=== PATIENT | female | born 1960 | race Caucasian/White ===

== ENCOUNTER 2021-04-02 11:07 | Inpatient (IN) | payer BC, SELFPAY ==
[2021-04-02] VITALS (17 sets, daily range): BP systolic 117–188; BP diastolic 59–96; PULSE 92–131; RESP 20–32; TEMP 36.6–37; O2SAT 88–99; BMI 58.4; BMI 52.9
--- NOTE | 2021-04-02 11:25 | EKG12_ITS ---
Test Reason : SOB Blood Pressure : / mmHG Vent. Rate : 123 BPM Atrial Rate : 102 BPM P-R Int : 000 ms QRS Dur : 098 ms QT Int : 336 ms P-R-T Axes : 000 030 025 degrees QTc Int : 481 ms Atrial fibrillation Low voltage QRS Abnormal ECG Confirmed by NGA CHRISTENSEN, MARIA FERNANDA ([id number]), supervising editor news reel ENDER SINCLAIR ([id number]) on 04/04/2021 1:23:33 PM Referred By: Confirmed By:MARIA FERNANDA SYLVESTER MD
--- NOTE | 2021-04-02 11:25 | RAD_ITS ---
STUDY: X-RAY CHEST REASON FOR EXAM: Female, 61 years old. sob TECHNIQUE: Single view of the chest was obtained COMPARISON: None. FINDINGS: No consolidative process, pleural effusion or pneumothorax. Cardiac size is prominent. Osseous structures demonstrate no acute abnormalities. Mild dextroconvex curvature of the thoracic spine. Platelike atelectasis in the left lower lobe. IMPRESSION: Mild cardiomegaly and subsegmental atelectasis in the left lower lobe Electronically Signed: Thomas Mccann MD at 13:56 EST Tel , Service support , RAD/Chest 1 View (Portable)
--- NOTE | 2021-04-02 11:31 | EDS_ITS ---
HPI History of Present Illness Chief Complaint: Shortness of Breath Informant: patient Narrative Narrative: 61-year-old female presenting with shortness of breath, body aches, cough, fever. She states her symptoms started approximately 10 days ago. She states her aunt tested positive for Covid. She is not vaccinated for Covid. She lives with her mother who also has similar complaints. She complains of generalized fatigue, weakness, decreased appetite. She complains of dyspnea on exertion. She denies chest pain. Recent Illness/Hospitalization: No PFSH PFSH Medical History (Updated 04/02/21 @ 14:[address] Syeda Pak MD) Diabetes mellitus HLD (hyperlipidemia) HTN (hypertension) Home Medications carvedilol 25 mg PO BID 04/02/21 [History Last Taken Unknown] cholecalciferol (vitamin D3) [Vitamin D3] 25 mcg PO DAILY 04/02/21 [History Last Taken Unknown] glimepiride 4 mg PO BID 04/02/21 [History Last Taken Unknown] losartan-hydrochlorothiazide 1 tab PO DAILY 04/02/21 [History Last Taken Unknown] Allergy/AdvReac Type Severity Reaction Status Date / Time codeine Allergy Shortness Verified 04/02/21 11:12 of breath Surgical History (Updated 04/02/21 @ 11:28 by Hai Sandoval) History of D&C History of wisdom tooth extraction Social History Smoking Status: Former smoker ROS ROS ED Constitutional Constitutional ED: Reports chills and fever(s) Eyes Eyes: Denies change in vision ENT ENT ED: Denies rhinorrhea or sore throat Cardiovascular Cardiovascular: Denies chest pain or palpitations Respiratory/Chest Respiratory/Chest: Reports cough, dyspnea and dyspnea on exertion Gastrointestinal Gastrointestinal: Reports diarrhea; Denies abdominal pain, nausea or vomiting Genitourinary Genitourinary ED: Denies dysuria Musculoskeletal Musculoskeletal: Reports myalgias Integumentary Denies rash Neurologic Neurologic: Denies headache(s) Psychiatric Psychiatric: Denies suicidal thoughts EXAM Physical Exam Const Vital Signs: 04/02/21 11:08 04/02/21 11:30 04/02/21 11:47 Temperature 97.8 F Temperature Source Temporal Pulse Rate 107 H 127 H Respiratory Rate 32 H 29 H Respiratory Effort Short of Breath Labored Respiratory Depth Normal Respiratory Pattern Tachypnea Blood Pressure 188/96 H Blood Pressure Mean 126 Pulse Ox 88 92 Oxygen Delivery Method Room Air Nasal Cannula Nasal Cannula Oxygen Flow Rate (L/min) 3 4 04/02/21 11:50 04/02/21 12:55 04/02/21 12:59 Temperature 97.8 F Temperature Source Temporal Pulse Rate 131 H 99 113 H Respiratory Rate 29 H 20 H 22 H Respiratory Effort Respiratory Depth Respiratory Pattern Tachypnea Blood Pressure 117/73 122/59 H Blood Pressure Mean 87 80 Pulse Ox 90 93 91 Oxygen Delivery Method Nasal Cannula Nasal Cannula Nasal Cannula Oxygen Flow Rate (L/min) 4 4 4 04/02/21 14:23 Temperature 98.3 F Temperature Source Oral Pulse Rate 98 Respiratory Rate 23 H Respiratory Effort Respiratory Depth Respiratory Pattern Blood Pressure 119/77 Blood Pressure Mean 91 Pulse Ox 90 Oxygen Delivery Method Nasal Cannula Oxygen Flow Rate (L/min) 6 Positive well nourished and well developed General Appearance ED: well developed HEENT Reports normocephalic, head/scalp atraumatic and dry mucous membranes Mouth ED: Yes dry mucous membranes Mouth: dry mucous membranes Eyes PERRL and EOMs intact bilaterally Neck supple General: Negative for tenderness Chest Wall inspection of chest normal Resp normal respiratory effort Auscultation: wheezes and diminished lung sounds Cardio Rate: tachycardic Rhythm: abnormal rhythm irregularly irregular GI non-tender and non-distended Palpation: soft; Negative for guarding or rebound tenderness present no CVA tenderness Extremity normal to inspection Neuro oriented x3 Sensorium / Orientation: alert Psych mental status grossly normal MDM MDM MDM Narrative Medical decision making narrative: Pulse ox 87% on room air at rest. EKG shows atrial fibrillation, patient has no known history of atrial fibrillation. She is given Cardizem IV. Labs were reviewed. Covid is positive. Chest x-ray read by myself and radiology shows mild cardiomegaly and subsegmental atelectasis in the left lower lobe. Patient's pulse ox is 93% on 4 L. CTA chest was obtained which shows no evidence of PE. Extensive Covid pneumonia. Discussed with hospitalist for admission.. Lab Data Attestation: I reviewed the patient's lab results. Labs: Laboratory Results - last 24 hr 04/02/21 04/02/21 11:44 11:44 WBC 3.7 L RBC 5.03 Hgb 14.3 Hct 41.6 MCV 82.7 MCH 28.4 MCHC 34.4 RDW Std Deviation 40.8 RDW Coeff of Yoana 13.6 Plt Count 119 L MPV 10.3 Immature Gran % (Auto) 0.500 Neut % (Auto) 73.0 H Lymph % (Auto) 17.9 L [place] % (Auto) 8.1 Eos % (Auto) 0.0 Baso % (Auto) 0.5 Absolute Neuts (auto) 2.7 Absolute Lymphs (auto) 0.66 L Nucleated RBC % 0 Sodium 131 L Potassium 2.9 L Chloride 96 L Carbon Dioxide 24.0 Anion Gap 11 BUN 41 H Creatinine 1.55 H Estim Creat Clear Calc 31.93 Est GFR (MDRD) Af Amer 44 L Est GFR (MDRD) Non-Af 36 L BUN/Creatinine Ratio 26.5 H Glucose 279 H Calcium 8.0 L Total Bilirubin 0.70 AST 72 H ALT 23 Alkaline Phosphatase 84 Troponin I High Sens 95 H Total Protein 7.2 Albumin 2.5 L Globulin 4.7 H Albumin/Globulin Ratio 0.5 L Radiography Chest X-Ray - ED: 1 View, Read by ED Physician and Read by Radiologist Diagnostic Testing: Clinical Impression(s) from Imaging Studies Chest X-Ray 04/02/21 11:25 Chest CTA 04/02/21 14:23 IMPRESSION: 1. No pulmonary embolism. 2. Some limitations to the study, recommend ultrasonography of the lower extremity venous system for further risk stratification. 3. Extensive Covid pneumonia. 4. Severe hepatic steatosis and hepatosplenomegaly. Follow-up with hepatology is advised for possible early/impending cirrhosis. Detection of early/mild cirrhosis is difficult in patients with elevated BMI. Electronically Signed: Vince Sherwood MD at 15:42 EST Tel , Service support , EKG Initial EKG: Attestation: I personally reviewed and interpreted this EKG as follows: Interpretation: No Acute Injury Pattern and Atrial Fibrillation Discharge Plan Triage Chief Complaint: Shortness of Breath ED Provider: Syeda Pak Dx/Rx/DC Orders Clinical Impression: COVID-19, Hypoxia, New onset a-fib Prescriptions: No Action carvedilol 25 mg tablet 25 mg PO BID RF: 0 losartan-hydrochlorothiazide 100-25 mg tablet 1 tab PO DAILY RF: 0 glimepiride 4 mg tablet 4 mg PO BID RF: 0 cholecalciferol (vitamin D3) [Vitamin D3] 25 mcg (1,000 unit) Capsule 25 mcg PO DAILY RF: 0 Primary Care Provider: Evelyn Lazcano Referrals: Evelyn Lazcano MD [Primary Care Provider] - Disposition Disposition: Acute Care Hospital [facility]
--- NOTE | 2021-04-02 11:31 | NURSING ---
NO OLD EKGS
[2021-04-02 12:03] LABS: Absolute Lymphocyte Count 0.66 X10^3/uL (0.83-4.51); Absolute Neutrophil Count 2.7 X10^3/uL (2.0-7.7); Basophil# 0.02 X10^3/uL; Basophil% 0.5 % (0-1); Hematocrit 41.6 % (37-47); Hemoglobin 14.3 g/dL (12.0-15.0); Lymphocyte # 0.66 X10^3/ul (0.83-4.51); Lymphocyte % 17.9 % (19-41); Mean Corp Hgb Conc 34.4 g/dL (32-36); Mean Corpuscular Hgb 28.4 pg (27.0-32.0); Mean Corpuscular Volume 82.7 fL (81-99); Mean Platelet Vol. 10.3 fl (6.2-12.0); Monocyte% 8.1 % (0-10); NRBC Flagged by Analyzer 0 % (0-5); Neutrophil # 2.69 X10^3/uL (2.7-7.7); POSITIVE MORPHOLOGY YES; Platelet Count 119 K/mm3 (150-450); RBC Distribution Width CV 13.6 % (11.6-14.6); RBC Distribution Width SD 40.8 fl (35.1-43.9); Red Blood Count 5.03 M/mm3 (4.2-5.4); White Blood Count 3.7 K/mm3 (4.4-11.0)
[2021-04-02 12:04] LABS: Differential Indicated SCAN CRITERIA MET
[2021-04-02 12:21] LABS: ALB/GLOB Ratio 0.5 RATIO (0.9-2.4); AST(SGOT) 72 U/L (15-37); Alanine Aminotransfer ALT/SGPT 23 U/L (13-56); Albumin, Serum 2.5 g/dL (3.2-5.0); Alkaline Phosphatase 84 U/L (45-117); Anion Gap 11 (5-15); BUN 41 mg/dL (7-18); BUN/Creat Ratio 26.5 RATIO (10-20); Chloride 96 mmol/L (98-107); Creatinine, Serum 1.55 mg/dL (0.55-1.02); EST Glomerular Filtration Rate 36 mL/min (>60); Est Glom Filt Rate - Afr Amer 44 mL/min (>60); Estimated Creatinine Clearance 31.93 ml/min; Globulin 4.7 g/dL (2.2-4.2); Glucose 279 mg/dL (74-106); Potassium 2.9 mmol/L (3.5-5.1); Protein, Total 7.2 g/dL (6.4-8.2); Sodium Level 131 mmol/L (136-145); Troponin-I HS 95 pg/mL (3.0-54.0)
[2021-04-02] MEDS: Albuterol 2.5 MG/3 ML VIAL.NEB. INHALATION (12:54)
[2021-04-02] MEDS: dilTIAZem 25 MG/5 ML Vial 10 MG IV BOLUS (12:56)
--- NOTE | 2021-04-02 14:21 | NURSING ---
DR ALTAGRACIA DELGADO
--- NOTE | 2021-04-02 14:23 | CT_ITS ---
STUDY: CTA CHEST REASON FOR EXAM: Female, 61 years old. Covid new onset atrial fibrillation RADIATION DOSAGE (If Supplied By Facility): CTDIvol = ( 11.47 ) mGy, DLP = ( 532.33 ) mGycm TECHNIQUE: The examination was performed with the intravenous administration of IV 100mL Isovue-370. Post-processing of the angiographic images was performed, with multiplanar reformation and 3D reconstruction. Individualized dose optimization techniques were used for this CT. COMPARISON: None. FINDINGS: Examination is technically limited due to patient''s severely large body habitus and scanning related technique. Segmental and subsegmental branches are not well seen. Diagnostic information is available. There is no acute or chronic pulmonary embolism. Aorta is of normal caliber. There are multifocal extensive lobular ground glass opacities. There is no pulmonary edema or pleural effusions. There are multiple reactive inflammatory benign mediastinal lymph nodes. There is mild coronary artery disease. Liver is moderately to severely enlarged and severely fatty infiltrated. Left hepatic lobe is enlarged. Spleen is moderately enlarged. There is no ascites. Osseous structures are intact. Abdominal structures are unremarkable. CT/CTA Chest W/WO Contrast IMPRESSION: 1. No pulmonary embolism. 2. Some limitations to the study, recommend ultrasonography of the lower extremity venous system for further risk stratification. 3. Extensive Covid pneumonia. 4. Severe hepatic steatosis and hepatosplenomegaly. Follow-up with hepatology is advised for possible early/impending cirrhosis. Detection of early/mild cirrhosis is difficult in patients with elevated BMI. Electronically Signed: Vince Sherwood MD at 15:42 EST Tel , Service support ,
[2021-04-02] MEDS: dexAMETHasone 4 MG Tablet 6 MG PO (14:24)
[2021-04-02] MEDS: Potassium Chloride Oral Tablet 20 MEQ 40 MEQ PO (14:24)
--- NOTE | 2021-04-02 15:54 | NURSING ---
PCU COVID, HYPOXIA, AFIB TERELETSKY
--- NOTE | 2021-04-02 17:59 | HP.PCM.HOS_ITS ---
HPI - General General Date of Admission: 04/02/21 Date of Service: 04/02/21 Chief Complaint: Shortness of breath HPI Narrative HUE JOHNSON, is a 61 F who presents to the emergency room at [facility] with complaints of shortness of breath. Patient also complains of body aches, nonproductive cough, and fever, patient states her symptoms started approximately 10 days ago, she cannot be absolutely sure but she feels that was the time frame. Patient was not vaccinated. Her mother who lives with her also has COVID-19 which was diagnosed today. Work-up in the emergency room included a CTA of her chest which showed no acacia dence of pulmonary emboli, there was noted to be bilateral pneumonia on the CTA however. Patient required supplemental oxygen at 4 L via nasal cannula to maintain her pulse ox. Patient's pulse ox on room air was 87%. Patient was noted to be in atrial fibrillation-this is a new rhythm for the patient, patient was given 1 dose of Cardizem IV which slowed her rate down. Patient's CBC revealed a slightly low white blood cell count at 3.7, chemistry profile was remarkable for a low potassium at 2.9, sodium was 131, chloride was 96, patient's creatinine was 1.55, and BUN was 41. Patient's blood sugar was elevated at 279. We do not have any previous labs in her medical record here. Patient's troponin was elevated at 95, EKG showed A. fib with tachycardia, no injury pattern was noted. Patient does not have any signs or symptoms of TN. Patient will be admitted to PCU for COVID-19 pneumonia with hypoxic respiratory failure, and new onset atrial fibrillation. Patient will be given rate limiting medications, she will be placed on Eliquis for full anticoagulation and she will receive remdesivir and dexamethasone. [facility] Medical History (Updated 04/02/21 @ 14:[address] Syeda Pak MD) Diabetes mellitus HLD (hyperlipidemia) HTN (hypertension) Home Medications carvedilol 25 mg PO BID 04/02/21 [History Last Taken Unknown] cholecalciferol (vitamin D3) [Vitamin D3] 25 mcg PO DAILY 04/02/21 [History Last Taken Unknown] glimepiride 4 mg PO BID 04/02/21 [History Last Taken Unknown] losartan-hydrochlorothiazide 1 tab PO DAILY 04/02/21 [History Last Taken Unknown] Allergy/AdvReac Type Severity Reaction Status Date / Time codeine Allergy Shortness Verified 04/02/21 11:12 of breath Surgical History (Updated 04/02/21 @ 11:28 by Hai Sandoval) History of D&C History of wisdom tooth extraction Social History Smoking Status: Former smoker ROS Constitutional Constitutional: Reports fatigue, fever(s), malaise and weakness; Denies anorexia, change in weight or night sweats Eyes Eyes: Denies blurry vision, change in vision, discharge from eye(s) or eye pain Cardiovascular Cardiovascular: Reports dyspnea on exertion; Denies chest pain, claudication, edema or palpitations Respiratory/Chest Respiratory/Chest: Reports cough, shortness of breath at rest and shortness of breath with exertion; Denies hemoptysis Gastrointestinal Gastrointestinal: Denies abdominal pain, constipation, diarrhea, hematemesis, hematochezia, melena, nausea or vomiting Genitourinary Genitourinary: Denies dysuria, hematuria, urinary frequency, urinary hesitancy, urinary incontinence or urinary urgency Musculoskeletal Musculoskeletal: Denies back pain, joint pain, joint stiffness, joint swelling, myalgias or neck pain Neurologic Neurologic: Denies abnormal gait, abnormal speech, confusion, disequilibrium, dizziness, focal weakness, headache(s), loss of vision, numbness, other visual disturbances, paresthesias, syncope or tingling Psychiatric Psychiatric: Denies anxiety, cognitive impairment, depression, irritability, mood swings or suicidal ideation Endocrine Endocrinology: Denies change in body appearance, cold intolerance, excessive sweating, heat intolerance, polydipsia or polyuria Hematologic/Lymphatic Hematologic/Lymphatic: Denies none, anemia, easy bleeding, easy bruising or lymphadenopathy Allergic/Immunologic Allergic/Immunologic: Denies rhinitis, urticaria, eczemia or asthma Vital Signs Vital Signs Vital Signs: 04/02/21 11:08 04/02/21 11:30 04/02/21 11:47 Temperature 97.8 F Temperature Source Temporal Pulse Rate 107 H 127 H Respiratory Rate 32 H 29 H Respiratory Effort Short of Breath Labored Respiratory Depth Normal Respiratory Pattern Tachypnea Blood Pressure 188/96 H Blood Pressure Mean 126 Blood Pressure Source Blood Pressure Position Blood Pressure Location Pulse Ox 88 92 Oxygen Delivery Method Room Air Nasal Cannula Nasal Cannula Oxygen Flow Rate (L/min) 3 4 04/02/21 11:50 04/02/21 12:55 04/02/21 12:59 Temperature 97.8 F Temperature Source Temporal Pulse Rate 131 H 99 113 H Respiratory Rate 29 H 20 H 22 H Respiratory Effort Respiratory Depth Respiratory Pattern Tachypnea Blood Pressure 117/73 122/59 H Blood Pressure Mean 87 80 Blood Pressure Source Blood Pressure Position Blood Pressure Location Pulse Ox 90 93 91 Oxygen Delivery Method Nasal Cannula Nasal Cannula Nasal Cannula Oxygen Flow Rate (L/min) 4 4 4 04/02/21 14:23 04/02/21 15:50 04/02/21 15:52 Temperature 98.3 F 97.8 F 97.8 F Temperature Source Oral Oral Oral Pulse Rate 98 108 H 102 H Respiratory Rate 23 H 28 H 28 H Respiratory Effort Respiratory Depth Respiratory Pattern Blood Pressure 119/77 122/69 H 122/69 H Blood Pressure Mean 91 86 86 Blood Pressure Source Blood Pressure Position Blood Pressure Location Pulse Ox 90 92 92 Oxygen Delivery Method Nasal Cannula Nasal Cannula Nasal Cannula Oxygen Flow Rate (L/min) 6 4 4 04/02/21 16:33 04/02/21 16:53 04/02/21 17:12 Temperature 98.6 F Temperature Source Oral Pulse Rate 99 Respiratory Rate 20 H 26 H Respiratory Effort Short of Breath Normal Non-Labored Respiratory Depth Shallow Normal Respiratory Pattern Tachypnea Normal Blood Pressure 149/73 H Blood Pressure Mean 98 Blood Pressure Source Monitor Blood Pressure Position Semi-Fowlers Blood Pressure Location Right Forearm Pulse Ox 99 Oxygen Delivery Method Room Air Nasal Cannula Nasal Cannula Oxygen Flow Rate (L/min) 4 4 04/02/21 17:23 Temperature Temperature Source Pulse Rate 103 H Respiratory Rate Respiratory Effort Respiratory Depth Respiratory Pattern Blood Pressure Blood Pressure Mean Blood Pressure Source Blood Pressure Position Blood Pressure Location Pulse Ox Oxygen Delivery Method Oxygen Flow Rate (L/min) Weight Weight: 135.397 kg Body Mass Index (BMI) 52.9 Physical Exam Const alert, oriented x3, no apparent distress and healthy appearing General Appearance: cooperative, well kempt and well developed Orientation / Consciousness: awake, oriented to person, oriented to place and oriented to time HEENT normocephalic, head/scalp atraumatic, hearing grossly normal bilaterally and m oist oral mucous membranes Eyes PERRL, EOMs intact bilaterally and conjunctivae normal Neck nuchal rigidity, supple, no JVD, thyroid normal and no carotid bruits General: trachea midline Resp normal respiratory effort, no retractions, no use of accessory muscles and clear to auscultation bilaterally Auscultation: Negative for rales, rhonchi or wheezes Cardio S1 normal heart sound, S2 normal heart sound, no murmurs, no rub and no gallops Cardio Narrative: Heart rate and rhythm is irregular GI normal to inspection, nondistended, normoactive bowel sounds, soft to palpation, non-tender and non-distended GI Narrative: Patient is morbidly obese Extremity no clubbing, cyanosis or edema Skin no rashes or lesions noted General Skin Exam: no breakdown Neuro oriented x3, CN's II-XII intact bilaterally, no focal motor deficits and no sensory deficits noted Sensorium / Orientation: awake and alert Speech: speech normal Psych thought process normal and affect normal Results Lab / Micro Data Result Diagrams: 04/02/21 11:44 04/02/21 11:44 Labs: Laboratory Results - last 24 hr 04/02/21 11:44: WBC 3.7 L, RBC 5.03, Hgb 14.3, Hct 41.6, MCV 82.7, MCH 28.4, MCHC 34.4, RDW Std Deviation 40.8, RDW Coeff of Yoana 13.6, Plt Count 119 L, MPV 10.3, Immature Gran % (Auto) 0.500, Neut % (Auto) 73.0 H, Lymph % (Auto) 17.9 L, [place] % (Auto) 8.1, Eos % (Auto) 0.0, Baso % (Auto) 0.5, Absolute Neuts (auto) 2.7, Absolute Lymphs (auto) 0.66 L, Nucleated RBC % 0 04/02/21 11:44: Sodium 131 L, Potassium 2.9 L, Chloride 96 L, Carbon Dioxide 24.0, Anion Gap 11, BUN 41 H, Creatinine 1.55 H, Estim Creat Clear Calc 31.93, Est GFR (MDRD) Af Amer 44 L, Est GFR (MDRD) Non-Af 36 L, BUN/Creatinine Ratio 26.5 H, Glucose 279 H, Calcium 8.0 L, Total Bilirubin 0.70, AST 72 H, ALT 23, A lkaline Phosphatase 84, Troponin I High Sens 95 H, Total Protein 7.2, Albumin 2.5 L, Globulin 4.7 H, Albumin/Globulin Ratio 0.5 L Micro: Microbiology 04/02/21 11:44 Nasal Secretion SARS-CoV-2 Antigen (Rapid) - Final SARS-CoV-2 (COVID 19) Radiology Impression Chest X-Ray 04/02/21 11:25 Chest CTA 04/02/21 14:23 IMPRESSION: 1. No pulmonary embolism. 2. Some limitations to the study, recommend ultrasonography of the lower extremity venous system for further risk stratification. 3. Extensive Covid pneumonia. 4. Severe hepatic steatosis and hepatosplenomegaly. Follow-up with hepatology is advised for possible early/impending cirrhosis. Detection of early/mild cirrhosis is difficult in patients with elevated BMI. Electronically Signed: Vince Sherwood MD at 15:42 EST Tel , Service support , Assessment & Plan Assessment/Plan (1) COVID-19: PLAN: 1. COVID-19 pneumonia-patient will be admitted to PCU, she will be placed on dexamethasone and remdesivir, labs will be monitored #2 acute hypoxic respiratory failure-patient is currently on nasal cannula oxygen at 4 L, pulse ox will be monitored #3 new onset atrial fibrillation with RVR-patient will be placed on metoprolol 25 mg twice daily for rate control, she was placed on apixaban 5 mg twice daily for anticoagulation. #4 type 2 diabetes-patient's blood sugars will be monitored, I have chosen to keep the patient on her home medication for her diabetes. #5 morbid obesity #6 elevated creatinine-it is unknown whether the patient has an element of chronic kidney disease, labs will be rechecked tomorrow, I do not feel the patient needs fluid administration at this time. I discussed CODE STATUS with the patient, she wants to be a full code including intubation if necessary. Charges/Coding Visit Charges Inpatient E&M: 57513 Init Hosp L3
[2021-04-02] MEDS: Metoprolol Tartrate 25 MG Tablet PO ×2 (18:01→22:26)
[2021-04-02 22:00] LABS: Bedside Glucose 412 mg/dL (70-110)
[2021-04-02] MEDS: APIXABAN 5 MG TABLET PO (22:25)
[2021-04-02] MEDS: Carvedilol 25 MG Tablet PO (22:26)
[2021-04-02] MEDS: Insulin Lispro 100 UNIT/ML INSULN.PEN SC (22:35)
[2021-04-02 23:43] LABS: BNP,B-Type NATRIURETIC PEPTIDE 59.7 pg/mL (0-100)
--- NOTE | 2021-04-02 23:45 | PCS.PANDOC ---
PANDEMIC DOCUMENTATION INITIATED: Date: 12/27/2020 Time: 190
[2021-04-03] VITALS (25 sets, daily range): BP systolic 85–131; BP diastolic 58–75; PULSE 74–111; RESP 12–25; TEMP 36.2–37.5; O2SAT 89–94
[2021-04-03 00:02] LABS: Ferritin 3731 ng/mL (8-252); LDH 727 U/L (84-246); Magnesium 2.1 mg/dL (1.6-2.6)
[2021-04-03 04:52] LABS: Absolute Lymphocyte Count 0.42 X10^3/uL (0.83-4.51); Absolute Neutrophil Count 1.5 X10^3/uL (2.0-7.7); Basophil# 0.01 X10^3/uL; Basophil% 0.5 % (0-1); Hematocrit 40.4 % (37-47); Hemoglobin 13.4 g/dL (12.0-15.0); Lymphocyte # 0.42 X10^3/ul (0.83-4.51); Lymphocyte % 19.5 % (19-41); Mean Corp Hgb Conc 33.2 g/dL (32-36); Mean Corpuscular Hgb 28.2 pg (27.0-32.0); Mean Corpuscular Volume 84.9 fL (81-99); Monocyte# 0.24 X10^3/uL; Monocyte% 11.2 % (0-10); NRBC Flagged by Analyzer 0 % (0-5); Neutrophil # 1.47 X10^3/uL (2.7-7.7); Neutrophil % 68.3 % (47-70); POSITIVE DIFFERENTIAL YES; POSITIVE MORPHOLOGY YES; Platelet Count 103 K/mm3 (150-450); RBC Distribution Width CV 13.5 % (11.6-14.6); RBC Distribution Width SD 42.3 fl (35.1-43.9); Red Blood Count 4.76 M/mm3 (4.2-5.4); White Blood Count 2.2 K/mm3 (4.4-11.0)
[2021-04-03 05:06] LABS: Differential Indicated SCAN CRITERIA MET
[2021-04-03 05:07] LABS: D-Dimer Quantitative (DVT/PE) 1.65 FEU/ug/m (0.27-0.49)
[2021-04-03 05:20] LABS: ALB/GLOB Ratio 0.5 RATIO (0.9-2.4); AST(SGOT) 66 U/L (15-37); Alanine Aminotransfer ALT/SGPT 29 U/L (13-56); Albumin, Serum 2.2 g/dL (3.2-5.0); Alkaline Phosphatase 82 U/L (45-117); Anion Gap 10 (5-15); BUN 44 mg/dL (7-18); BUN/Creat Ratio 29.9 RATIO (10-20); Calcium,Total 7.9 mg/dL (8.5-10.1); Chloride 96 mmol/L (98-107); Creatinine, Serum 1.47 mg/dL (0.55-1.02); EST Glomerular Filtration Rate 39 mL/min (>60); Est Glom Filt Rate - Afr Amer 47 mL/min (>60); Estimated Creatinine Clearance 33.67 ml/min; Globulin 4.6 g/dL (2.2-4.2); Glucose 425 mg/dL (74-106); Potassium 3.5 mmol/L (3.5-5.1); Protein, Total 6.8 g/dL (6.4-8.2); Sodium Level 131 mmol/L (136-145)
[2021-04-03 05:39] LABS: Procalcitonin 0.32 ng/mL (0.00-0.09)
[2021-04-03] MEDS: Insulin Lispro 100 UNIT/ML INSULN.PEN SC ×4 (06:53→21:34)
[2021-04-03 07:06] LABS: Bedside Glucose 392 mg/dL (70-110)
[2021-04-03 07:10] LABS: Hemoglobin A1c 9.2 % (3.8-5.6)
[2021-04-03] MEDS: Ipratropium/Albuterol Sulfate 3 ML AMPUL.NEB INHALATION ×3 (07:15→19:20)
[2021-04-03] MEDS: Metoprolol Tartrate 25 MG Tablet PO ×2 (10:35→21:36)
[2021-04-03] MEDS: Carvedilol 25 MG Tablet PO ×2 (10:36→21:36)
[2021-04-03] MEDS: Cholecalciferol (VIT D3) 25 MCG TABLET (1,000 UNITS) PO (10:36)
[2021-04-03] MEDS: APIXABAN 5 MG TABLET PO ×2 (10:36→21:37)
[2021-04-03] MEDS: Losartan Potassium 100 MG Tablet PO (10:36)
[2021-04-03] MEDS: dexAMETHasone 4 MG/ML Vial 6 MG IV (10:36)
[2021-04-03] MEDS: hydroCHLOROthiazide 25 MG Tablet PO (10:36)
[2021-04-03] MEDS: Glimepiride 4 MG Tablet PO (10:37)
[2021-04-03 12:30] LABS: Bedside Glucose 480 mg/dL (70-110)
[2021-04-03] MEDS: Insulin Lispro 100 UNIT/ML INSULN.PEN 10 UNIT SC ×2 (13:44→17:06)
[2021-04-03] MEDS: 0.9% Saline Lock 10 ML Syringe IV (17:05)
[2021-04-03] MEDS: Furosemide 40 MG/4 ML Vial IV (17:05)
[2021-04-03 17:15] LABS: Bedside Glucose 436 mg/dL (70-110)
--- NOTE | 2021-04-03 19:27 | PCM.PN.HOSP ---
Subjective Subjective Patient was seen and examined today, currently she is on BiPAP at 75% O2, she appears comfortable at rest. I elected to place the patient on Lasix today. I also contacted infectious diseases and the patient was placed on baricitinib. Objective Data Objective Data Vital Signs: Vital Signs Temp Pulse Resp BP Pulse Ox 97.3 F L 86 20 H 94/59 L 93 04/03/21 16:00 04/03/21 18:00 04/03/21 16:00 04/03/21 16:00 04/03/21 16:00 Oxygen Flow Rate (L/min) 60 Oxygen Delivery Method Bi-pap Weight: 135.4 kg Body Mass Index (BMI) 52.9 Intake & Output: Intake and Output for Last 24 Hours 04/01/21 04/02/21 04/03/21 23:59 23:59 23:59 Intake Total 770 / 770 790 / 790 Output Total 200 / 200 Balance 770 / 770 590 / 590 Lab / Micro Data Result Diagrams: 04/03/21 04:25 04/03/21 04:25 Labs: Laboratory Results - last 24 hr 04/02/21 11:44: Magnesium 2.1, Ferritin 3731 H, Lactate Dehydrogenase 727 H, C-React Prot Ext Range 147.00 H 04/02/21 11:44: B-Natriuretic Peptide 59.7 04/02/21 21:53: POC Glucose 412 H 04/03/21 04:25: WBC 2.2 L, RBC 4.76, Hgb 13.4, Hct 40.4, MCV 84.9, MCH 28.2, MCHC 33.2, RDW Std Deviation 42.3, RDW Coeff of Yoana 13.5, Plt Count 103 L, MPV 10.0, Immature Gran % (Auto) 0.500, Neut % (Auto) 68.3, Lymph % (Auto) 19.5, [place] % (Auto) 11.2 H, Eos % (Auto) 0.0, Baso % (Auto) 0.5, Absolute Neuts (auto) 1.5 L, Absolute Lymphs (auto) 0.42 L, Nucleated RBC % 0, Diff Path Review September04/03/21 04:25: Sodium 131 L, Potassium 3.5, Chloride 96 L, Carbon Dioxide 25.0, Anion Gap 10, BUN 44 H, Creatinine 1.47 H, Estim Creat Clear Calc 33.67, Est GFR (MDRD) Af Amer 47 L, Est GFR (MDRD) Non-Af 39 L, BUN/Creatinine Ratio 29.9 H, Glucose 425 H, Calcium 7.9 L, Total Bilirubin 0.50, AST 66 H, ALT 29, Alkaline Phosphatase 82, Total Protein 6.8, Albumin 2.2 L, Globulin 4.6 H, Albumin/Globulin Ratio 0.5 L 04/03/21 04:25: D-Dimer Quant (PE/DVT) 1.65 H* 04/03/21 04:25: Procalcitonin 0.32 H 04/03/21 04:25: Hemoglobin A1c 9.2 H 04/03/21 06:44: POC Glucose 392 H 04/03/21 12:18: POC Glucose 480 H* 04/03/21 17:04: POC Glucose 436 H Micro: Microbiology 04/02/21 23:45 Mucosa - Nasopharyngeal Respiratory Panel (PCR) - Final 04/02/21 11:44 Nasal Secretion SARS-CoV-2 Antigen (Rapid) - Final SARS-CoV-2 (COVID 19) Physical Exam Const alert, oriented x3, no apparent distress and healthy appearing General Appearance: cooperative, well kempt and well developed Orientation / Consciousness: awake, oriented to person, oriented to place and oriented to time HEENT normocephalic, head/scalp atraumatic and moist oral mucous membranes Head and Scalp: normocephalic Eyes PERRL, EOMs intact bilaterally and conjunctivae normal Neck nuchal rigidity, supple, no JVD, thyroid normal and no carotid bruits General: trachea midline Resp normal respiratory effort, no retractions, no use of accessory muscles and clear to auscultation bilaterally Auscultation: Negative for rales, rhonchi or wheezes Cardio no murmurs, no rub and no gallops Cardio Narrative: Heart rate and rhythm is irregular GI normal to inspection, nondistended, normoactive bowel sounds, soft to palpation, non-tender and non-distended GI Narrative: Patient is morbidly obese Extremity no clubbing, cyanosis or edema Skin no rashes or lesions noted General Skin Exam: no breakdown Neuro oriented x3, CN's II-XII intact bilaterally, no focal motor deficits and no sensory deficits noted Sensorium / Orientation: awake and alert Speech: speech normal Psych thought process normal and affect normal Assessment & Plan Assessment/Plan (1) COVID-19: PLAN: 1. COVID-19 pneumonia-patient was placed on baricitinib today, she will be seen by infectious diseases tomorrow. #2 acute hypoxic respiratory failure-I will consult pulmonary medicine due to her high oxygen requirement, patient is currently on BiPAP #3 new onset atrial fibrillation with RVR-this appears to be under control with rate limiting medications, I have chosen not to obtain an echocardiogram at this time due to the patient's tenuous respiratory status. #4 type 2 diabetes-patient's blood sugars will be monitored,I will stop the patient's Amaryl, I have placed the patient on long-acting insulin, she will continue to receive sliding scale insulin. #5 morbid obesity #6 elevated creatinine-it is unknown whether the patient has an element of chronic kidney disease, labs will be rechecked tomorrow, I do not feel the patient needs fluid administration at this time. I discussed CODE STATUS with the patient yesterday, she wants to be a full code including intubation if necessary. Charges/Coding Visit Charges Inpatient E&M: 90277 Subs Hosp L2
--- NOTE | 2021-04-03 19:43 | PCM.HOSP.N ---
Hospitalist Note Patient reporting desire to transition CODE status. She now notes interest in transitioning to DNR-CCA, no intubation status therefore CODE status order for her current request placed. She has continued to requiring increasing amounts FiO2 on BIPAP, BP low but on lasix concurrently.
--- NOTE | 2021-04-03 21:21 | CPS ---
Pt. put on AirVo during her aersol breathing tx. Pt. needed put back on BiPAP after tx. ended, due to hypoxia and AirVo being unable to keep oxygen saturations in appropriate range
[2021-04-03 21:50] LABS: Bedside Glucose 271 mg/dL (70-110)
[2021-04-04] VITALS (28 sets, daily range): BP systolic 85–124; BP diastolic 56–81; PULSE 73–98; RESP 12–30; TEMP 35.8–37; O2SAT 88–96
[2021-04-04] MEDS: 0.9% Saline Lock 10 ML Syringe IV ×2 (04:00→09:31)
--- NOTE | 2021-04-04 04:10 | NURSING ---
bladderscanned for 597 ml. Pt has not voided since sunday afternoon. Pt denies need to void.
[2021-04-04 07:17] LABS: Absolute Lymphocyte Count 0.71 X10^3/uL (0.83-4.51); Absolute Neutrophil Count 2.4 X10^3/uL (2.0-7.7); Basophil# 0.02 X10^3/uL; Basophil% 0.6 % (0-1); Hematocrit 40.2 % (37-47); Hemoglobin 13.4 g/dL (12.0-15.0); Lymphocyte # 0.71 X10^3/ul (0.83-4.51); Lymphocyte % 21.3 % (19-41); Mean Corp Hgb Conc 33.3 g/dL (32-36); Mean Corpuscular Hgb 28.3 pg (27.0-32.0); Mean Corpuscular Volume 84.8 fL (81-99); Mean Platelet Vol. 10.3 fl (6.2-12.0); Monocyte# 0.23 X10^3/uL; Monocyte% 6.9 % (0-10); NRBC Flagged by Analyzer 0 % (0-5); Neutrophil # 2.35 X10^3/uL (2.7-7.7); Neutrophil % 70.6 % (47-70); POSITIVE MORPHOLOGY YES; Platelet Count 124 K/mm3 (150-450); RBC Distribution Width CV 13.5 % (11.6-14.6); RBC Distribution Width SD 42.1 fl (35.1-43.9); Red Blood Count 4.74 M/mm3 (4.2-5.4); White Blood Count 3.3 K/mm3 (4.4-11.0)
[2021-04-04 07:36] LABS: Differential Indicated SCAN CRITERIA MET
[2021-04-04] MEDS: Ipratropium/Albuterol Sulfate 3 ML AMPUL.NEB INHALATION ×3 (07:38→19:32)
[2021-04-04 07:50] LABS: ALB/GLOB Ratio 0.4 RATIO (0.9-2.4); AST(SGOT) 43 U/L (15-37); Alanine Aminotransfer ALT/SGPT 21 U/L (13-56); Albumin, Serum 1.9 g/dL (3.2-5.0); Alkaline Phosphatase 75 U/L (45-117); Anion Gap 11 (5-15); BUN 64 mg/dL (7-18); BUN/Creat Ratio 44.4 RATIO (10-20); Calcium,Total 8.5 mg/dL (8.5-10.1); Chloride 103 mmol/L (98-107); Creatinine, Serum 1.44 mg/dL (0.55-1.02); EST Glomerular Filtration Rate 40 mL/min (>60); Est Glom Filt Rate - Afr Amer 48 mL/min (>60); Estimated Creatinine Clearance 34.37 ml/min; Globulin 4.8 g/dL (2.2-4.2); Glucose 190 mg/dL (74-106); Potassium 3.2 mmol/L (3.5-5.1); Protein, Total 6.7 g/dL (6.4-8.2); Sodium Level 135 mmol/L (136-145)
[2021-04-04 07:55] LABS: Reactive Lymphocyte RARE
--- NOTE | 2021-04-04 08:33 | EX.PCM.CONCC ---
Assessment & Plan Assessment/Plan (1) Acute respiratory failure with hypoxia: (2) COVID-19: (3) New onset a-fib: PLAN: RECOMMENDATIONS: 1. Continue baricitinib, Decadron and Remdesivir 2. Agree with bronchodilators 3. Consider empiric antibiotics 4. Aggressive potassium repletion and blood sugar control 5. Continue Lasix for now 6. Attempt Airvo during the day. Continue BiPAP with sleep IMPRESSIONS: 1. Acute hypoxic respiratory failure secondary to ARDS secondary to COVID-19 Did confirm patient is a DNR Comfort Care arrest without intubation. Patient is wanting guarantees about intubation that cannot be given. Patient is receiving aggressive therapy with baricitinib, Decadron and Remdesivir. Would consider empiric antibiotics given patient's marginal oxygenation status. Patient is already receiving diuretics, but will aggressively supplement potassium. Continue with aggressive blood sugar control, but this will be exacerbated by Decadron. Patient may have an element of obstructive sleep apnea leading to worsening oxygenation with sleep, so may attempt Airvo during the day. 2. Hypertension/morbid obesity/unvaccinated status/no intubation Complicates care, management, recovery and prognosis. Okay to continue with baseline medications at this time. High clinical suspicion for an element of obstructive sleep apnea, so patient may be able to go back to Airvo when not sleeping. Recommend continuing BiPAP for now. Did discuss with the patient about the role of mechanical ventilation moving forward. HPI Consult Data Date of Consult: 04/04/21 HPI Narrative HPI Narrative: HUE JOHNSON is a 61 F, with past medical history listed below, who presents to [facility] on 04/02/2021 secondary to approximately 10 days of progressive symptomatology including dyspnea, body aches, fever and cough. Patient has not received vaccinations for COVID-19. Patient does live with her mother that has similar complaints. In the ER, patient was afebrile, but tachycardic as high as 131 bpm. Patient was noted to be 88% on room air, but did respond to 6 L nasal cannula. Laboratory data showed a white blood cell count of 3.7, hemoglobin of 14.3 and platelets of 119. Potassium was low at 2.9 and creatinine was elevated at 1.55 with a BUN of 41. Glucose was elevated, but liver enzymes were relatively benign. CTA of the chest showed no PE, but groundglass opacities bilaterally. Patient also had severe steatosis with hepatosplenomegaly. EKG showed A. fib. Over the course of patient's hospitalization, oxygenation has worsened. Patient is currently on BiPAP at 100% FiO2 to maintain saturations. Patient was seen by the hospitalist overnight and changed her CODE STATUS to DNR Comfort Care arrest without intubation. Patient states that she wants a guarantee that it will make a difference before agreeing to any invasive procedures. Patient denies any need for previous supplemental oxygen. Patient does not carry diagnosis of asthma or COPD, but does report a 14-berl-wijv smoking history. Patient is obese and admits to snoring, but is never been diagnosed with obstructive sleep apnea. Patient is not reporting any nausea or vomiting and feels the BiPAP does help with her breathlessness. Patient does carry diagnosis of hypertension and type 2 diabetes. Review of systems otherwise negative from a constitutional, HEENT, respiratory, cardiovascular, GI, genitourinary, musculoskeletal, skin, neurologic, psychiatric and hematologic system unless stated above. [facility] Medical History Diabetes mellitus HLD (hyperlipidemia) HTN (hypertension) Home Medications carvedilol 25 mg PO BID 04/02/21 [History Last Taken Unknown] cholecalciferol (vitamin D3) [Vitamin D3] 25 mcg PO DAILY 04/02/21 [History Last Taken Unknown] glimepiride 4 mg PO BID 04/02/21 [History Last Taken Unknown] losartan-hydrochlorothiazide 1 tab PO DAILY 04/02/21 [History Last Taken Unknown] Allergy/AdvReac Type Severity Reaction Status Date / Time codeine Allergy Shortness Verified 04/02/21 11:12 of breath Surgical History History of D&C History of wisdom tooth extraction Social History Smoking Status: Former smoker ROS ROS Narrative See HPI Physical Exam Const alert and oriented x3 General Appearance: cooperative, well kempt, well developed and on BiPAP Orientation / Consciousness: awake, oriented to person, oriented to place and oriented to time Nutritional Appearance: morbidly obese HEENT normocephalic, head/scalp atraumatic and moist oral mucous membranes Head and Scalp: normocephalic Eyes PERRL, EOMs intact bilaterally and conjunctivae normal Neck nuchal rigidity, supple, no JVD, thyroid normal and no carotid bruits General: trachea midline Resp no retractions Effort and Inspection: tachypneic Auscultation: diminished lung sounds; Negative for rales, rhonchi or wheezes Cardio no murmurs, no rub and no gallops Cardio Narrative: Heart rate is controlled and rhythm is irregular GI normal to inspection, nondistended, normoactive bowel sounds, soft to palpation, non-tender and non-distended GI Narrative: Patient is morbidly obese Extremity no clubbing, cyanosis or edema Skin no rashes or lesions noted General Skin Exam: no breakdown Neuro oriented x3, CN's II-XII intact bilaterally, no focal motor deficits and no sensory deficits noted Sensorium / Orientation: awake and alert Speech: speech normal Psych thought process normal and affect normal Lab / Micro Data Result Diagrams: 04/04/21 06:32 04/04/21 06:32 Labs: Laboratory Results - last 24 hr 04/03/21 12:18: POC Glucose 480 H* 04/03/21 17:04: POC Glucose 436 H 04/03/21 21:31: POC Glucose 271 H 04/04/21 06:32: WBC 3.3 L, RBC 4.74, Hgb 13.4, Hct 40.2, MCV 84.8, MCH 28.3, MCHC 33.3, RDW Std Deviation 42.1, RDW Coeff of Yoana 13.5, Plt Count 124 L, MPV 10.3, Immature Gran % (Auto) 0.600, Neut % (Auto) 70.6 H, Lymph % (Auto) 21.3, [place] % (Auto) 6.9, Eos % (Auto) 0.0, Baso % (Auto) 0.6, Absolute Neuts (auto) 2.4, Absolute Lymphs (auto) 0.71 L, Nucleated RBC % 0, Reactive Lymphocytes RARE 04/04/21 06:32: Sodium 135 L, Potassium 3.2 L, Chloride 103, Carbon Dioxide 21.0, Anion Gap 11, BUN 64 H, Creatinine 1.44 H, Estim Creat Clear Calc 34.37, Est GFR (MDRD) Af Amer 48 L, Est GFR (MDRD) Non-Af 40 L, BUN/Creatinine Ratio 44.4 H, Glucose 190 H, Calcium 8.5, Total Bilirubin 0.40, AST 43 H, ALT 21, Alkaline Phosphatase 75, C-React Prot Ext Range 122.00 H, Total Protein 6.7, Albumin 1.9 L, Globulin 4.8 H, Albumin/Globulin Ratio 0.4 L Micro: Microbiology 04/04/21 04:30 Urine Catheter - Whipple Legionella Antigen - Final 04/04/21 04:30 Urine Catheter - Whipple Streptococcus pneumoniae Antigen (M - Final 04/02/21 23:45 Mucosa - Nasopharyngeal Respiratory Panel (PCR) - Final Charges/Coding Visit Charges Inpatient E&M: 19261 Init Hosp L3
[2021-04-04] MEDS: Potassium Chloride 10mEq/100mL 10 MEQ/100 ML IV.SOLN. 100 MEQ IV BOLUS ×4 (09:49→15:11)
[2021-04-04] MEDS: dexAMETHasone 4 MG/ML Vial 6 MG IV (09:57)
[2021-04-04] MEDS: Carvedilol 25 MG Tablet PO ×2 (10:01→21:17)
[2021-04-04] MEDS: Losartan Potassium 100 MG Tablet PO (10:01)
[2021-04-04] MEDS: APIXABAN 5 MG TABLET PO ×2 (10:01→21:16)
[2021-04-04] MEDS: Cholecalciferol (VIT D3) 25 MCG TABLET (1,000 UNITS) PO (10:01)
[2021-04-04] MEDS: Furosemide 40 MG Tablet PO ×2 (10:01→17:39)
[2021-04-04] MEDS: guaiFENesin 1,200 MG Tablet 1200 MG PO ×2 (10:01→21:16)
[2021-04-04 10:21] LABS: Bedside Glucose 184 mg/dL (70-110)
--- NOTE | 2021-04-04 11:45 | CASEMGMT ---
RN CM called daughterSeema, for initial transition planning/care coordination assessment, as patient is on continuous Bipap at this time. PAULINO CM introduced self and role at [facility]. Daughter willing to participate in assessment and is able to answer all questions appropriately. Care providers, pharmacy, and demographics verified. Daughter wishes for patient to discharge home, will monitor for need for HHC pending progress with therapy. Daughter states she has no further needs or concerns at this time. CM to follow for discharge planning needs that may arise. PCP: [facility] Specialists: none Preferred Pharmacy: [facility]; [facility] retail at discharge. Insurance: [employer] Prescription Benefit: yes Living Will/HPOA: none LNOK: daughter, mother Living Arrangements: Patient lives with mother, whom she provides care for which patient's daughter is currently providing care. Patient lives in a 2 story home. Patient is normally independent and able to ambulate stairs. Transportation: self/daughter DME/HHC: Daughter denies previous DME or HHC. No preferences for DME. Disposition Plan: Patient to discharge home with family support and follow-up plans in place. Will monitor for HHC and home oxygen pending progress with care. Natalia FRANK, RN, CM
[2021-04-04] MEDS: Metoprolol Tartrate 25 MG Tablet PO ×2 (12:06→21:16)
[2021-04-04 12:15] LABS: Bedside Glucose 158 mg/dL (70-110)
--- NOTE | 2021-04-04 15:40 | PCM.CONS.GEN ---
Assessment & Plan Assessment/Plan (1) COVID-19: PLAN: Sx started around 03/23. Isolate until 04/12. Unvaccinated. On dex, remdesivir, baricitinib, and zosyn. Recommended vaccine once out of isolation and out of the hospital. CT neg for PE. Procal 0.3. Overall low suspicion for bacterial infection at this point. Will follow, thank you (2) Acute respiratory failure with hypoxia: HPI Consult Data Date of Consult: 04/04/21 HPI Narrative HPI Narrative: HUE JOHNSON, is a 61 F who presented 04/02 with about 10 days fever, chills, fatigue, aches, SOB, cough, diarrhea. Lives with her mother who is recovering. Unvaccinated. Came to ED, admitted on dex, remdesivir. Put on airvo, started baricitinib. Feeling a little better. Full ROS performed and neg except as noted above. [facility] Medical History Diabetes mellitus HLD (hyperlipidemia) HTN (hypertension) Home Medications carvedilol 25 mg PO BID 04/02/21 [History Last Taken Unknown] cholecalciferol (vitamin D3) [Vitamin D3] 25 mcg PO DAILY 04/02/21 [History Last Taken Unknown] glimepiride 4 mg PO BID 04/02/21 [History Last Taken Unknown] losartan-hydrochlorothiazide 1 tab PO DAILY 04/02/21 [History Last Taken Unknown] Allergy/AdvReac Type Severity Reaction Status Date / Time codeine Allergy Shortness Verified 04/02/21 11:12 of breath Surgical History History of D&C History of wisdom tooth extraction Social History Smoking Status: Former smoker Physical Exam Const alert and oriented x3 General Appearance: cooperative Exam Limitations: no limitations HEENT normocephalic and head/scalp atraumatic Eyes PERRL and EOMs intact bilaterally Neck supple and No nodes Resp Auscultation: diminished lung sounds Cardio regular rate and regular rhythm GI normal to inspection, nondistended, normoactive bowel sounds Extremity no clubbing, cyanosis or edema Skin no rashes or lesions noted Neuro CN's II-XII intact bilaterally Lab / Micro Data Result Diagrams: 04/04/21 06:32 04/04/21 06:32 Labs: Laboratory Results - last 24 hr 04/03/21 17:04: POC Glucose 436 H 04/03/21 21:31: POC Glucose 271 H 04/04/21 06:32: WBC 3.3 L, RBC 4.74, Hgb 13.4, Hct 40.2, MCV 84.8, MCH 28.3, MCHC 33.3, RDW Std Deviation 42.1, RDW Coeff of Yoana 13.5, Plt Count 124 L, MPV 10.3, Immature Gran % (Auto) 0.600, Neut % (Auto) 70.6 H, Lymph % (Auto) 21.3, [place] % (Auto) 6.9, Eos % (Auto) 0.0, Baso % (Auto) 0.6, Absolute Neuts (auto) 2.4, Absolute Lymphs (auto) 0.71 L, Nucleated RBC % 0, Reactive Lymphocytes RARE 04/04/21 06:32: Sodium 135 L, Potassium 3.2 L, Chloride 103, Carbon Dioxide 21.0, Anion Gap 11, BUN 64 H, Creatinine 1.44 H, Estim Creat Clear Calc 34.37, Est GFR (MDRD) Af Amer 48 L, Est GFR (MDRD) Non-Af 40 L, BUN/Creatinine Ratio 44.4 H, Glucose 190 H, Calcium 8.5, Total Bilirubin 0.40, AST 43 H, ALT 21, Alkaline Phosphatase 75, C-React Prot Ext Range 122.00 H, Total Protein 6.7, Albumin 1.9 L, Globulin 4.8 H, Albumin/Globulin Ratio 0.4 L 04/04/21 09:29: POC Glucose 184 H 04/04/21 12:02: POC Glucose 158 H Micro: Microbiology 04/04/21 04:30 Urine Catheter - Whipple Legionella Antigen - Final 04/04/21 04:30 Urine Catheter - Whipple Streptococcus pneumoniae Antigen (M - Final
--- NOTE | 2021-04-04 16:41 | PN.HOSP_ITS ---
Subjective Subjective Patient remains on BiPAP. She changed her CODE STATUS to DNR CCA without intubation overnight. She denies any acute changes. Objective Data Objective Data Vital Signs: Vital Signs Temp Pulse Resp BP Pulse Ox 98.0 F 89 22 H 124/81 H 90 04/04/21 16:10 04/04/21 16:10 04/04/21 16:10 04/04/21 16:10 04/04/21 16:10 Oxygen Flow Rate (L/min) 60 Oxygen Delivery Method Bi-pap Weight: 135.4 kg Body Mass Index (BMI) 52.9 Intake & Output: Intake and Output for Last 24 Hours 04/02/21 04/03/21 04/04/21 23:59 23:59 23:59 Intake Total 770 / 770 790 / 990 1170 / 1170 Output Total 200 / 200 1350 / 1350 Balance 770 / 770 590 / 790 -180 / -180 Lab / Micro Data Result Diagrams: 04/04/21 06:32 04/04/21 06:32 Labs: Laboratory Results - last 24 hr 04/03/21 17:04: POC Glucose 436 H 04/03/21 21:31: POC Glucose 271 H 04/04/21 06:32: WBC 3.3 L, RBC 4.74, Hgb 13.4, Hct 40.2, MCV 84.8, MCH 28.3, MCHC 33.3, RDW Std Deviation 42.1, RDW Coeff of Yoana 13.5, Plt Count 124 L, MPV 10.3, Immature Gran % (Auto) 0.600, Neut % (Auto) 70.6 H, Lymph % (Auto) 21.3, [place] % (Auto) 6.9, Eos % (Auto) 0.0, Baso % (Auto) 0.6, Absolute Neuts (auto) 2.4, Absolute Lymphs (auto) 0.71 L, Nucleated RBC % 0, Reactive Lymphocytes RARE 04/04/21 06:32: Sodium 135 L, Potassium 3.2 L, Chloride 103, Carbon Dioxide 21.0, Anion Gap 11, BUN 64 H, Creatinine 1.44 H, Estim Creat Clear Calc 34.37, Est GFR (MDRD) Af Amer 48 L, Est GFR (MDRD) Non-Af 40 L, BUN/Creatinine Ratio 44.4 H, Glucose 190 H, Calcium 8.5, Total Bilirubin 0.40, AST 43 H, ALT 21, Alkaline Phosphatase 75, C-React Prot Ext Range 122.00 H, Total Protein 6.7, Albumin 1.9 L, Globulin 4.8 H, Albumin/Globulin Ratio 0.4 L 04/04/21 09:29: POC Glucose 184 H 04/04/21 12:02: POC Glucose 158 H Micro: Microbiology 04/04/21 04:30 Urine Catheter - Whipple Legionella Antigen - Final 04/04/21 04:30 Urine Catheter - Whipple Streptococcus pneumoniae Antigen (M - Final 04/02/21 23:45 Mucosa - Nasopharyngeal Respiratory Panel (PCR) - Final 04/02/21 11:44 Nasal Secretion SARS-CoV-2 Antigen (Rapid) - Final SARS-CoV-2 (COVID 19) Physical Exam Const alert, oriented x3 and no apparent distress Constitutional Narrative: Morbidly obese white female lying in bed on BiPAP, c ognition is good and patient can interact well with nodding head and mouthing words through her BiPAP, nontoxic-appearing Exam Limitations: no limitations Nutritional Appearance: morbidly obese HEENT head/scalp atraumatic and oropharynx normal HEENT Narrative: Mallampati 3-4, no thrush Head and Scalp: normocephalic Mouth: dry mucous membranes Resp normal respiratory effort, no retractions, no use of accessory muscles and clear to auscultation bilaterally Resp Narrative: Secondary to body habitus but overall diminished without any adventitious sounds, currently no signs of extremis Auscultation: Negative for crackles, rales, rhonchi or wheezes Cardio regular rate, regular rhythm, S1 normal heart sound, S2 normal heart sound, no murmurs, no rub, no gallops, no clicks and no JVD GI normal to inspection, nondistended, normoactive bowel sounds, soft to palpation, non-tender and non-distended Extremity no clubbing, cyanosis or edema Peripheral Pulses: Yes pulses 2+ throughout Neuro oriented x3, CN's II-XII intact bilaterally, moves all extremities and no focal motor deficits Sensorium / Orientation: awake and alert Assessment & Plan Assessment/Plan (1) Acute respiratory failure with hypoxia: (2) COVID-19: (3) New onset a-fib: (4) Leukopenia: (5) Thrombocytopenia: (6) Hypokalemia: (7) Stage 3b chronic kidney disease: PLAN: Acute hypoxic respiratory failure secondary to COVID-19 pneumonia -Patient is currently on BiPAP with an FiO2 of 85% and an SPO2 of 90 to 93% -Patient changed her CODE STATUS to DNR CCA without intubation overnight -Continue baricitinib dose 2 of 14 -Continue Decadron dose 2 of 10 -Continue remdesivir dose 2 of 5 -Lasix 40 mg p.o. twice daily has been ordered and patient also got an extra IV push dose overnight -Repeat a.m. BMP to monitor renal function -Check sputum culture -Encourage prone lying as able -Encourage incentive spirometer and Acapella as able -Duo nebs -Patient is on Eliquis 5 mg p.o. twice daily -Will need isolation until 04/12/2021 as symptoms started approximately 03/23/2021 -Recommend vaccine once out of isolation -Appreciate pulmonary and infectious disease input New onset A. fib -Patient is currently in normal sinus rhythm -We will obtain echocardiogram once patient is out of isolation as there is no change that will be made at this time given acute findings on echo -Patient is on Eliquis 5 mg p.o. twice daily Leukopenia -Mild -Likely related to COVID-19 infection -Continue to monitor counts Thrombocytopenia -Mild -Current platelet count is 128 -CBC in a.m. Hypokalemia -Discontinue scheduled potassium replacement -60 mEq p.o. x1 dose -Repeat BMP in a.m. -If still low will obtain mag level Suspected CKD stage IIIb -We have no available serum creatinine measurements prior to admission -Serum creatinine is relatively stable at 1.444 on admission was 1.55 -Continue to monitor -I do think it likely that she has CKD given her history of diabetes DM-2 uncontrolled -Hemoglobin A1c was 9.2 on admission -Patient is only on glimepiride 4 mg p.o. twice daily at baseline -I would recommend at least starting Metformin upon discharge if patient tolerates it -Continue management with insulins at this time given Decadron use -Continue Lantus 20 units twice daily and lispro 10 units 3 times daily with meals -Continue SSI -Accu-Cheks as ordered -Goal blood sugar given critical illness 140-180 Hypertension -Continue carvedilol 25 mg p.o. twice daily -Continue losartan hydrochlorothiazide daily DVT prophylaxis -Continue Eliquis 5 mg p.o. twice daily CODE STATUS -CODE STATUS change through the night to DNR CCA with no intubation Charges/Coding Visit Charges Inpatient E&M: 61045 Subs Hosp L2
[2021-04-04] MEDS: Insulin Lispro 100 UNIT/ML INSULN.PEN SC ×2 (17:37→21:22)
[2021-04-04] MEDS: Potassium Chloride Oral Tablet 20 MEQ 60 MEQ PO (17:39)
[2021-04-04 18:00] LABS: Bedside Glucose 227 mg/dL (70-110)
[2021-04-05] VITALS (38 sets, daily range): BP systolic 75–145; BP diastolic 48–98; PULSE 73–95; RESP 12–30; TEMP 36–36.2; O2SAT 78–97
[2021-04-05 00:36] LABS: Bedside Glucose 273 mg/dL (70-110)
[2021-04-05 05:58] LABS: Absolute Lymphocyte Count 0.58 X10^3/uL (0.83-4.51); Absolute Neutrophil Count 3.2 X10^3/uL (2.0-7.7); Basophil# 0.01 X10^3/uL; Basophil% 0.2 % (0-1); Hematocrit 43.5 % (37-47); Hemoglobin 14.8 g/dL (12.0-15.0); Lymphocyte # 0.58 X10^3/ul (0.83-4.51); Mean Corpuscular Hgb 28.7 pg (27.0-32.0); Mean Corpuscular Volume 84.5 fL (81-99); Monocyte# 0.28 X10^3/uL; Monocyte% 6.8 % (0-10); NRBC Flagged by Analyzer 0 % (0-5); Neutrophil # 3.24 X10^3/uL (2.7-7.7); Neutrophil % 78.5 % (47-70); POSITIVE DIFFERENTIAL YES; POSITIVE MORPHOLOGY YES; Platelet Count 144 K/mm3 (150-450); RBC Distribution Width CV 13.5 % (11.6-14.6); RBC Distribution Width SD 42.2 fl (35.1-43.9); Red Blood Count 5.15 M/mm3 (4.2-5.4); White Blood Count 4.1 K/mm3 (4.4-11.0)
[2021-04-05 06:05] LABS: Differential Indicated SCAN CRITERIA MET
[2021-04-05 06:17] LABS: ALB/GLOB Ratio 0.4 RATIO (0.9-2.4); AST(SGOT) 46 U/L (15-37); Alanine Aminotransfer ALT/SGPT 22 U/L (13-56); Albumin, Serum 2.2 g/dL (3.2-5.0); Alkaline Phosphatase 82 U/L (45-117); Anion Gap 7 (5-15); BUN 63 mg/dL (7-18); BUN/Creat Ratio 44.7 RATIO (10-20); Calcium,Total 8.9 mg/dL (8.5-10.1); Chloride 104 mmol/L (98-107); Creatinine, Serum 1.41 mg/dL (0.55-1.02); EST Glomerular Filtration Rate 40 mL/min (>60); Est Glom Filt Rate - Afr Amer 49 mL/min (>60); Glucose 211 mg/dL (74-106); Potassium 3.4 mmol/L (3.5-5.1); Protein, Total 7.2 g/dL (6.4-8.2); Sodium Level 138 mmol/L (136-145)
--- NOTE | 2021-04-05 06:57 | PN.CC_ITS ---
Assessment & Plan Assessment/Plan (1) Acute respiratory failure with hypoxia: (2) COVID-19: (3) New onset a-fib: PLAN: RECOMMENDATIONS: 1. Continue baricitinib (04/16/2021), Decadron (04/12/2021) and Remdesivir (04/06/2021) 2. Agree with bronchodilators 3. Agree with empiric antibiotics 4. Aggressive potassium repletion and blood sugar control 5. Continue Lasix for now 6. Attempt Airvo during the day. Continue BiPAP with sleep. Cannot exclude intubation later today IMPRESSIONS: 1. Acute hypoxic respiratory failure secondary to ARDS secondary to COVID-19 Did confirm patient is now a full code. Some concerns that the patient will need to be intubated today given persistence on BiPAP at 100% FiO2. Patient is receiving aggressive therapy with baricitinib, Decadron and Remdesivir. Would consider empiric antibiotics given patient's marginal oxygenation status. Patient is already receiving diuretics, but will supplement potassium as indicated. Continue with aggressive blood sugar control, but this will be exacerbated by Decadron. Patient may have an element of obstructive sleep apnea leading to worsening oxygenation with sleep, so may attempt Airvo during the day. If unable to tolerate Airvo later today, will likely proceed with intubation to allow for nutritional intake and stabilization. 2. Hypertension/morbid obesity/unvaccinated status/no intubation Complicates care, management, recovery and prognosis. Okay to continue with baseline medications at this time. High clinical suspicion for an element of obstructive sleep apnea, so patient may be able to go back to Airvo when not sleeping. Recommend continuing BiPAP for now. TIME: 32 minutes critical care time was spent addressing patient's acute hypoxic respiratory failure, hypertension, A. fib, review of all data and collaboration with care team (6 AM to 7 AM) Subjective Subjective Patient did okay yesterday. Patient has remained on BiPAP at 100% FiO2 to maintain saturations. Patient subjectively feels unchanged compared to yesterday, but was not able to take any breaks during the day. Nursing does report some diarrhea. Patient is not reporting any pain at this time. Patient did decide to change her CODE STATUS to full at approximately 6 PM yesterday. Patient was subsequently transferred to the intensive care unit for closer monitoring. Objective Data Objective Data Vital Signs: Vital Signs Temp Pulse Resp BP Pulse Ox 36.0 C L 79 24 H 119/65 94 04/05/21 04:00 04/05/21 06:00 04/05/21 06:00 04/05/21 06:00 04/05/21 06:00 Oxygen Flow Rate (L/min) 60 Oxygen Delivery Method Bi-pap Weight: 136.7 kg Body Mass Index (BMI) 52.9 Intake & Output: Intake and Output for Last 24 Hours 04/03/21 04/04/21 04/05/21 23:59 23:59 23:59 Intake Total 790 / 990 1320 / 1320 50 / 50 Output Total 200 / 200 2300 / 2300 Balance 590 / 790 -980 / -980 50 / 50 Lab / Micro Data Result Diagrams: 04/05/21 05:40 04/05/21 05:40 Labs: Laboratory Results - last 24 hr 04/04/21 06:32: WBC 3.3 L, RBC 4.74, Hgb 13.4, Hct 40.2, MCV 84.8, MCH 28.3, MCHC 33.3, RDW Std Deviation 42.1, RDW Coeff of Yoana 13.5, Plt Count 124 L, MPV 10.3, Immature Gran % (Auto) 0.600, Neut % (Auto) 70.6 H, Lymph % (Auto) 21.3, [place] % (Auto) 6.9, Eos % (Auto) 0.0, Baso % (Auto) 0.6, Absolute Neuts (auto) 2.4, Absolute Lymphs (auto) 0.71 L, Nucleated RBC % 0, Reactive Lymphocytes RARE 04/04/21 06:32: Sodium 135 L, Potassium 3.2 L, Chloride 103, Carbon Dioxide 21.0, Anion Gap 11, BUN 64 H, Creatinine 1.44 H, Estim Creat Clear Calc 34.37, Est GFR (MDRD) Af Amer 48 L, Est GFR (MDRD) Non-Af 40 L, BUN/Creatinine Ratio 44.4 H, Glucose 190 H, Calcium 8.5, Total Bilirubin 0.40, AST 43 H, ALT 21, Alkaline Phosphatase 75, C-React Prot Ext Range 122.00 H, Total Protein 6.7, Albumin 1.9 L, Globulin 4.8 H, Albumin/Globulin Ratio 0.4 L 04/04/21 09:29: POC Glucose 184 H 04/04/21 12:02: POC Glucose 158 H 04/04/21 17:37: POC Glucose 227 H 04/04/21 21:15: POC Glucose 273 H 04/05/21 05:40: WBC 4.1 L, RBC 5.15, Hgb 14.8, Hct 43.5, MCV 84.5, MCH 28.7, M CHC 34.0, RDW Std Deviation 42.2, RDW Coeff of Yoana 13.5, Plt Count 144 L, MPV 10.0, Immature Gran % (Auto) 0.500, Neut % (Auto) 78.5 H, Lymph % (Auto) 14.0 L, [place] % (Auto) 6.8, Eos % (Auto) 0.0, Baso % (Auto) 0.2, Absolute Neuts (auto) 3.2, Absolute Lymphs (auto) 0.58 L, Nucleated RBC % 0 04/05/21 05:40: Sodium 138, Potassium 3.4 L, Chloride 104, Carbon Dioxide 27.0, Anion Gap 7, BUN 63 H, Creatinine 1.41 H, Estim Creat Clear Calc 35.10, Est GFR (MDRD) Af Amer 49 L, Est GFR (MDRD) Non-Af 40 L, BUN/Creatinine Ratio 44.7 H, Glucose 211 H, Calcium 8.9, Total Bilirubin 0.50, AST 46 H, ALT 22, Alkaline Phosphatase 82, Total Protein 7.2, Albumin 2.2 L, Globulin 5.0 H, Albumin/Globulin Ratio 0.4 L Micro: Microbiology 04/04/21 04:30 Urine Catheter - Whipple Legionella Antigen - Final 04/04/21 04:30 Urine Catheter - Whipple Streptococcus pneumoniae Antigen (M - Final 04/02/21 23:45 Mucosa - Nasopharyngeal Respiratory Panel (PCR) - Final 04/02/21 11:44 Nasal Secretion SARS-CoV-2 Antigen (Rapid) - Final SARS-CoV-2 (COVID 19) Physical Exam Const alert and oriented x3 General Appearance: cooperative, well kempt, well developed and on BiPAP Orientation / Consciousness: awake, oriented to person, oriented to place and oriented to time Nutritional Appearance: morbidly obese HEENT normocephalic, head/scalp atraumatic and moist oral mucous membranes Head and Scalp: normocephalic Eyes PERRL, EOMs intact bilaterally and conjunctivae normal Neck nuchal rigidity, supple, no JVD, thyroid normal and no carotid bruits General: trachea midline Resp no retractions Effort and Inspection: tachypneic Auscultation: diminished lung sounds; Negative for rales, rhonchi or wheezes Cardio no murmurs, no rub and no gallops Cardio Narrative: Heart rate is controlled and rhythm is irregular GI normal to inspection, nondistended, normoactive bowel sounds, soft to palpation, non-tender and non-distended GI Narrative: Patient is morbidly obese Extremity no clubbing, cyanosis or edema Skin no rashes or lesions noted General Skin Exam: no breakdown Neuro oriented x3, CN's II-XII intact bilaterally, no focal motor deficits and no s ensory deficits noted Sensorium / Orientation: awake and alert Speech: speech normal Psych thought process normal and affect normal Charges/Coding Procedures Hospitalists Procedures: [id number] Critial Care 1st Hr
[2021-04-05] MEDS: Ipratropium/Albuterol Sulfate 3 ML AMPUL.NEB INHALATION ×2 (07:05→19:51)
[2021-04-05] MEDS: Insulin Lispro 100 UNIT/ML INSULN.PEN SC ×4 (07:53→23:57)
[2021-04-05] MEDS: Furosemide 40 MG/4 ML Vial IV (07:57)
[2021-04-05] MEDS: dexAMETHasone 4 MG/ML Vial 6 MG IV (08:01)
[2021-04-05] MEDS: Potassium Chloride 10mEq/100mL 10 MEQ/100 ML IV.SOLN. 100 MEQ IV BOLUS ×4 (08:35→11:48)
[2021-04-05] MEDS: APIXABAN 5 MG TABLET PO ×2 (10:57→20:27)
[2021-04-05] MEDS: guaiFENesin 1,200 MG Tablet 1200 MG PO ×2 (10:57→20:27)
[2021-04-05] MEDS: Cholecalciferol (VIT D3) 25 MCG TABLET (1,000 UNITS) PO (10:57)
[2021-04-05] MEDS: Carvedilol 25 MG Tablet PO ×2 (10:57→20:27)
[2021-04-05] MEDS: Losartan Potassium 100 MG Tablet PO (10:57)
[2021-04-05 11:15] LABS: Bedside Glucose 178 mg/dL (70-110)
[2021-04-05 11:20] LABS: Bedside Glucose 178 mg/dL (70-110)
[2021-04-05 12:08] LABS: CPK Total, Creatine Kinase 240 U/L (26-192); Triglycerides 97 mg/dL
--- NOTE | 2021-04-05 12:26 | PN.HOSP_ITS ---
Subjective Subjective Patient change CODE STATUS late yesterday afternoon to full code. Worsening respiratory distress and therefore was transferred to the ICU where she currently remains on BiPAP continuously with an FiO2 now of 100%. They were temporarily able to wean this but as soon as she had a bowel movement and required cleaning up she desatted very quickly. I do anticipate the patient will require intubation at some point in the near future I did discuss this with her and she still desires intubation if needed. Patient is complaining of some pain at her left antecubital IV where she is getting potassium replacement at this time. Objective Data Objective Data Vital Signs: Vital Signs Temp Pulse Resp BP Pulse Ox 96.9 F L 87 27 H 128/87 H 91 04/05/21 08:00 04/05/21 11:07 04/05/21 11:07 04/05/21 10:00 04/05/21 11:07 Oxygen Flow Rate (L/min) 60 Oxygen Delivery Method Bi-pap Weight: 136.7 kg Body Mass Index (BMI) 52.9 Intake & Output: Intake and Output for Last 24 Hours 04/03/21 04/04/21 04/05/21 23:59 23:59 23:59 Intake Total 790 / 990 1320 / 1320 400 / 400 Output Total 200 / 200 2300 / 2300 1150 / 1150 Balance 590 / 790 -980 / -980 -750 / -750 Lab / Micro Data Result Diagrams: 04/05/21 05:40 04/05/21 05:40 Labs: Laboratory Results - last 24 hr 04/04/21 17:37: POC Glucose 227 H 04/04/21 21:15: POC Glucose 273 H 04/05/21 05:40: WBC 4.1 L, RBC 5.15, Hgb 14.8, Hct 43.5, MCV 84.5, MCH 28.7, MCHC 34.0, RDW Std Deviation 42.2, RDW Coeff of Yoana 13.5, Plt Count 144 L, MPV 10.0, Immature Gran % (Auto) 0.500, Neut % (Auto) 78.5 H, Lymph % (Auto) 14.0 L, [place] % (Auto) 6.8, Eos % (Auto) 0.0, Baso % (Auto) 0.2, Absolute Neuts (auto) 3.2, Absolute Lymphs (auto) 0.58 L, Nucleated RBC % 0, Diff Path Review September04/05/21 05:40: Sodium 138, Potassium 3.4 L, Chloride 104, Carbon Dioxide 27.0, Anion Gap 7, BUN 63 H, Creatinine 1.41 H, Estim Creat Clear Calc 35.10, Est GFR (MDRD) Af Amer 49 L, Est GFR (MDRD) Non-Af 40 L, BUN/Creatinine Ratio 44.7 H, Glucose 211 H, Calcium 8.9, Total Bilirubin 0.50, AST 46 H, ALT 22, Alkaline Phosphatase 82, Total Protein 7.2, Albumin 2.2 L, Globulin 5.0 H, Albumin/Globulin Ratio 0.4 L 04/05/21 05:40: Total Creatine Kinase 240 H, Triglycerides 97 04/05/21 07:52: POC Glucose 178 H 04/05/21 10:50: POC Glucose 178 H Micro: Microbiology 04/04/21 04:30 Urine Catheter - Whipple Legionella Antigen - Final 04/04/21 04:30 Urine Catheter - Whipple Streptococcus pneumoniae Antigen (M - Final 04/02/21 23:45 Mucosa - Nasopharyngeal Respiratory Panel (PCR) - Final 04/02/21 11:44 Nasal Secretion SARS-CoV-2 Antigen (Rapid) - Final SARS-CoV-2 (COVID 19) Physical Exam Const alert, oriented x3, no apparent distress and healthy appearing Constitutional Narrative: Morbidly obese white female lying in bed on BiPAP, cognition is good and patient can interact well with nodding head and mouthing words through her BiPAP, nontoxic-appearing General Appearance: cooperative, well kempt and well developed Orientation / Consciousness: awake, oriented to person, oriented to place and oriented to time Exam Limitations: no limitations Nutritional Appearance: morbidly obese HEENT normocephalic, head/scalp atraumatic, hearing grossly normal bilaterally and oropharynx normal HEENT Narrative: Lip tongue are dry secondary to continuous BiPAP, no thrush noted Head and Scalp: normocephalic Mouth: dry mucous membranes Neck nuchal rigidity and thyroid normal General: trachea midline Resp no retractions, no use of accessory muscles and clear to auscultation bilaterally Resp Narrative: Secondary to body habitus but overall diminished without any adventitious sounds, currently no signs of extremis but patient does exhibit increased work of breathing and significant tachypnea Auscultation: Negative for crackles, rales, rhonchi or wheezes Cardio regular rate, S1 normal heart sound, S2 normal heart sound, no murmurs, no rub, no gallops, no clicks and no JVD Cardio Narrative: Heart rate and rhythm is irregular GI normal to inspection, nondistended, normoactive bowel sounds, soft to palpation, non-tender and non-distended GI Narrative: Patient is morbidly obese Extremity no clubbing, cyanosis or edema Peripheral Pulses: Yes pulses 2+ throughout Skin no rashes or lesions noted, no wounds, skin turgor normal, no jaundice, no petechiae and no mottling General Skin Exam: no breakdown Neuro oriented x3, moves all extremities and no focal motor deficits Sensorium / Orientation: awake and alert Psych thought process normal Psych Narrative: Patient appears mildly anxious and scared Assessment & Plan Assessment/Plan (1) Acute respiratory failure with hypoxia: (2) COVID-19: (3) New onset a-fib: (4) Leukopenia: (5) Thrombocytopenia: (6) Hypokalemia: (7) Stage 3b chronic kidney disease: PLAN: Acute hypoxic respiratory failure secondary to COVID-19 pneumonia -Patient is currently on BiPAP with an FiO2 of 100% and an SPO2 of 89-91% -Anticipate that patient will need intubated -Patient is now change her CODE STATUS back to full code as of last evening 04/04/2021 -Continue baricitinib dose 3 of 14 -Continue Decadron dose 3 of 10 -Continue remdesivir dose 3 of 5 -Lasix as needed -Respiratory viral panel is pending -Check sputum culture if able to be collected -Encourage prone lying as able -Encourage incentive spirometer and Acapella as able -Duo nebs -Patient is on Eliquis 5 mg p.o. twice daily -Will need isolation until 04/12/2021 as symptoms started approximately 03/23/2021 -Recommend vaccine once out of isolation -Appreciate pulmonary and infectious disease input New onset A. fib -Patient is currently in normal sinus rhythm -We will obtain echocardiogram once patient is out of isolation as there is no change that will be made at this time given acute findings on echo -Patient is on Eliquis 5 mg p.o. twice daily Leukopenia -Mild and counts are improving slowly -Likely related to COVID-19 infection -Continue to monitor counts Thrombocytopenia -Mild and counts are trending up -Current platelet count is 144 -CBC in a.m. Hypokalemia - 40 mEq of IV potassium -Repeat BMP in a.m. -Check a.m. magnesium level Suspected CKD stage IIIb -We have no available serum creatinine measurements prior to admission -Serum creatinine is relatively stable at 1.41 to day on admission was 1.55 -Continue to monitor -I do think it likely that she has CKD given her history of diabetes DM-2 uncontrolled -Hemoglobin A1c was 9.2 on admission -Blood sugars are overall better -Patient is only on glimepiride 4 mg p.o. twice daily at baseline -I would recommend at least starting Metformin upon discharge if patient tolerates it -Continue Lantus 26 units twice daily and lispro 10 units 3 times but will need changed to every 6 if patient is intubated -Continue SSI -Accu-Cheks as ordered -Goal blood sugar given critical illness 140-180 Hypertension -Continue carvedilol 25 mg p.o. twice daily -Continue losartan hydrochlorothiazide daily -We will likely need to schedule IV antihypertensives if patient is intubated DVT prophylaxis -Continue Eliquis 5 mg p.o. twice daily CODE STATUS -Code change reverted back to full code last evening
[2021-04-05] MEDS: Etomidate 20 MG/10 ML Vial IV ×2 (13:47→13:51)
[2021-04-05] MEDS: Propofol 10MG/Ml 1,000 MG/100 ML Bottle 8.2 MG CONT INF (13:49)
--- NOTE | 2021-04-05 14:05 | RAD_ITS ---
STUDY: X-RAY CHEST REASON FOR EXAM: Female, 61 years old. ETT and OG placement TECHNIQUE: AP COMPARISON: 04/02/2021 FINDINGS: Endotracheal tube has been placed with tip terminating 2.4 cm above the anny. Esophagogastric tube extends the left upper abdomen. Multifocal infiltrates with features commonly reported with COVID pneumonia. Overall worsens prior chest x-ray of 04/02/2021. There is no demonstrated pleural abnormality. Normal size heart. Normal mediastinum and nate. Normal visualized pulmonary arteries. Normal visualized aortic arch and descending thoracic aorta. No acute bony process. There is no demonstrated abnormality of the visualized soft tissue structures of the upper abdomen. RAD/Chest 1 View (Portable) IMPRESSION: 1. Endotracheal and esophagogastric tubes, as above. 2. Multifocal infiltrates with features commonly reported with COVID pneumonia. Electronically Signed: Deven Dugan MD ([facility]) at 14:25 EST , Service support ,
--- NOTE | 2021-04-05 14:15 | NURSING ---
Patient prepped for intubation. Dr. Ha at the bedside to intubate and Dr. Jiang is outside of the room. patient given etomidate 20mg IV x1 at 1347. Patient intubated with 7.5 ETT 23@lip at 1349, +color change and bilateral breath sounds present. Patient given an additional etomidate 20mg IV X1 at 1351. Chest XRay obtained and viewed by Dr. Jiang who instructed repitratory to advance the ETT. ETT now 25@lip. Pulse ox currently 87% on 100% FiO2 and peep 12.
[2021-04-05] MEDS: Vital AF 1.2 Cal Liquid 1,000 ML 20 ML GT (14:25)
--- NOTE | 2021-04-05 14:36 | PCM.HOSP.N ---
Hospitalist Note Endotracheal intubation: Diagnosis: Acute hypoxic respiratory failure secondary to COVID-19 pneumonia Sedation: Etomidate 20 mg Procedure: The patient was positioned in the sitting position and 20 mg of IV etomidate was given. Once patient was adequately sedated, the glide scope was inserted into the patient's oropharynx with excellent visualization of the vocal cords. A 7.5 ET tube was placed between the vocal cords and the stylette removed as the ET tube was advanced. There was excellent color change on the end-tidal CO2 detector, condensation in the ET tube, and bilateral breath sounds were noted upon bagging. The patient bagged easily for the most part other than when she was coughing. The patient was then hooked up to the ventilator and a chest x-ray was performed. The ET tube advanced 2 cm after reviewing the chest x-ray. Procedures Hospitalists Procedures: [id number] Insert Emergency Airway
[2021-04-05 16:06] LABS: Allen Test Positive; Base Excess 1 mmol/L (-2 to +2); Bicarbonate 25.9 mmol/L (22-26); Blood Gas Specimen Type ART; FI02 100; Mode AC; O2 Delivery Device ET Tube; PEEP 12; PO2 88 mmHG (75-100); RR 14; SITE R Radial; SO2 97 % (95-99); Total Carbon Dioxide 27 mmol/L; Vt 450; pCO2 43.9 mmHg (35-45); pH 7.38 (7.35-7.45)
[2021-04-05] MEDS: Propofol 10MG/Ml 1,000 MG/100 ML Bottle 12.3 MG CONT INF (16:45)
[2021-04-05 18:16] LABS: Bedside Glucose 287 mg/dL (70-110)
[2021-04-05] MEDS: Nystatin Powder 15gm Bottle 1 APPLIC TOPICAL (20:28)
[2021-04-05] MEDS: Chlorhexidine 15 ML PO (20:28)
[2021-04-05] MEDS: Propofol 10MG/Ml 1,000 MG/100 ML Bottle 41 MG CONT INF (21:50)
[2021-04-06] VITALS (35 sets, daily range): BP systolic 107–162; BP diastolic 60–99; PULSE 72–116; RESP 14–22; TEMP 35.8–36.2; O2SAT 89–99
[2021-04-06 00:16] LABS: Bedside Glucose 317 mg/dL (70-110)
[2021-04-06] MEDS: Propofol 10MG/Ml 1,000 MG/100 ML Bottle 16.4 MG CONT INF ×2 (00:38→18:39)
[2021-04-06 03:55] LABS: Absolute Lymphocyte Count 0.65 X10^3/uL (0.83-4.51); Absolute Neutrophil Count 2.4 X10^3/uL (2.0-7.7); Basophil# 0.01 X10^3/uL; Basophil% 0.3 % (0-1); Hematocrit 43.9 % (37-47); Hemoglobin 14.4 g/dL (12.0-15.0); Lymphocyte # 0.65 X10^3/ul (0.83-4.51); Lymphocyte % 19.1 % (19-41); Mean Corp Hgb Conc 32.8 g/dL (32-36); Mean Corpuscular Hgb 28.9 pg (27.0-32.0); Mean Platelet Vol. 9.7 fl (6.2-12.0); Monocyte# 0.28 X10^3/uL; Monocyte% 8.2 % (0-10); NRBC Flagged by Analyzer 0 % (0-5); Neutrophil # 2.44 X10^3/uL (2.7-7.7); Neutrophil % 71.8 % (47-70); POSITIVE MORPHOLOGY YES; Platelet Count 151 K/mm3 (150-450); RBC Distribution Width CV 13.8 % (11.6-14.6); RBC Distribution Width SD 44.5 fl (35.1-43.9); Red Blood Count 4.99 M/mm3 (4.2-5.4); White Blood Count 3.4 K/mm3 (4.4-11.0)
[2021-04-06 04:03] LABS: Differential Indicated SCAN CRITERIA MET
[2021-04-06 04:43] LABS: Atypical Lymphocyte RARE %; Differential Comment SCANNED
[2021-04-06 06:04] LABS: ALB/GLOB Ratio 0.5 RATIO (0.9-2.4); AST(SGOT) 76 U/L (15-37); Alanine Aminotransfer ALT/SGPT 38 U/L (13-56); Albumin, Serum 2.2 g/dL (3.2-5.0); Alkaline Phosphatase 88 U/L (45-117); Anion Gap 10 (5-15); BUN 66 mg/dL (7-18); BUN/Creat Ratio 44.6 RATIO (10-20); Calcium,Total 8.8 mg/dL (8.5-10.1); Chloride 107 mmol/L (98-107); Creatinine, Serum 1.48 mg/dL (0.55-1.02); EST Glomerular Filtration Rate 38 mL/min (>60); Est Glom Filt Rate - Afr Amer 46 mL/min (>60); Estimated Creatinine Clearance 33.44 ml/min; Globulin 4.7 g/dL (2.2-4.2); Glucose 286 mg/dL (74-106); Magnesium 2.2 mg/dL (1.6-2.6); Potassium 3.7 mmol/L (3.5-5.1); Protein, Total 6.9 g/dL (6.4-8.2); Sodium Level 141 mmol/L (136-145)
[2021-04-06] MEDS: Insulin Lispro 100 UNIT/ML INSULN.PEN SC ×4 (06:25→23:12)
[2021-04-06 06:30] LABS: Bedside Glucose 253 mg/dL (70-110)
--- NOTE | 2021-04-06 07:11 | PN.CC_ITS ---
Assessment & Plan Assessment/Plan (1) Acute respiratory failure with hypoxia: (2) COVID-19: (3) New onset a-fib: PLAN: RECOMMENDATIONS: 1. Continue baricitinib (04/16/2021), Decadron (04/12/2021) and Remdesivir (04/06/2021) 2. Agree with bronchodilators and empiric antibiotics 3. Wean FiO2 and PEEP as tolerated. 4. Aggressive potassium repletion and blood sugar control 5. Continue with baseline Lasix for now for euvolemia 6. Continue rate control IMPRESSIONS: 1. Acute hypoxic respiratory failure secondary to ARDS secondary to COVID-19 Did confirm patient is now a full code. Some concerns that the patient will need to be intubated today given persistence on BiPAP at 100% FiO2. Patient subsequently intubated on 04/05/2021. Patient is receiving aggressive therapy with baricitinib, Decadron and Remdesivir. Agree with empiric antibiotics given patient's marginal oxygenation status. Patient is already receiving diuretics, but will supplement potassium as indicated. Continue with aggressive blood sugar control.increase Lantus. Spontaneous breathing and awakening trials per protocol 2. Hypertension/morbid obesity/unvaccinated status/no intubation Complicates care, management, recovery and prognosis. Okay to continue with baseline medications at this time. High clinical suspicion for an element of obstructive sleep apnea. This will have to be addressed as an outpatient, but patient may benefit from extubation to BiPAP TIME: 34 minutes critical care time was spent addressing patient's acute hypoxic respiratory failure, hypertension, A. fib, review of all data and collaboration with care team (5:30 AM to 6:30 AM) Subjective Subjective Patient did okay overnight from a hemodynamic standpoint. However, patient became agitated through the evening and had to have Precedex started. Patient much more synchronous with the ventilator at this time. Patient has tolerated tube feeds. FiO2 has been able to be weaned to 80% from 100%, but PEEP remains at 12, so no spontaneous breathing trial was attempted this morning. Objective Data Objective Data Vital Signs: Vital Signs Temp Pulse Resp BP Pulse Ox 36.2 C L 86 18 117/74 90 04/06/21 04:00 04/06/21 07:00 04/06/21 07:00 04/06/21 07:00 04/06/21 07:00 Oxygen Flow Rate (L/min) 100 Oxygen Delivery Method Mechanical Ventilator Weight: 135.7 kg Body Mass Index (BMI) 52.9 Intake & Output: Intake and Output for Last 24 Hours 04/04/21 04/05/21 04/06/21 23:59 23:59 23:59 Intake Total 1320 / 1320 1385.66 / 1497.50 520.49 / 520.49 Output Total 2300 / 2300 1975 / 2325 700 / 700 Balance -980 / -980 -589.34 / -827.50 -179.51 / -179.51 Lab / Micro Data Result Diagrams: 04/06/21 03:45 04/06/21 03:45 Labs: Laboratory Results - last 24 hr 04/05/21 05:40: Total Creatine Kinase 240 H, Triglycerides 97 04/05/21 07:52: POC Glucose 178 H 04/05/21 10:50: POC Glucose 178 H 04/05/21 17:56: POC Glucose 287 H 04/05/21 23:56: POC Glucose 317 H 04/06/21 03:45: Sodium 141, Potassium 3.7, Chloride 107, Carbon Dioxide 24.0, Anion Gap 10, BUN 66 H, Creatinine 1.48 H, Estim Creat Clear Calc 33.44, Est GFR (MDRD) Af Amer 46 L, Est GFR (MDRD) Non-Af 38 L, BUN/Creatinine Ratio 44.6 H, Glucose 286 H, Calcium 8.8, Magnesium 2.2, Total Bilirubin 0.70, AST 76 H, ALT 38, Alkaline Phosphatase 88, Total Protein 6.9, Albumin 2.2 L, Globulin 4.7 H, Albumin/Globulin Ratio 0.5 L 04/06/21 03:45: WBC 3.4 L, RBC 4.99, Hgb 14.4, Hct 43.9, MCV 88.0, MCH 28.9, MCHC 32.8, RDW Std Deviation 44.5 H, RDW Coeff of [place] 13.8, Plt Count 151, MPV 9.7, Immature Gran % (Auto) 0.600, Neut % (Auto) 71.8 H, Lymph % (Auto) 19.1, [place] % (Auto) 8.2, Eos % (Auto) 0.0, Baso % (Auto) 0.3, Absolute Neuts (auto) 2.4, Absolute Lymphs (auto) 0.65 L, Nucleated RBC % 0, Differential Comment SCANNED, Atypical Lymphocytes RARE 04/06/21 06:24: POC Glucose 253 H Micro: Microbiology 04/05/21 13:50 Sputum, Induced/[place] Gram Stain - Final 04/04/21 04:30 Urine Catheter - Whipple Legionella Antigen - Final 04/04/21 04:30 Urine Catheter - Whipple Streptococcus pneumoniae Antigen (M - Final 04/02/21 23:45 Mucosa - Nasopharyngeal Respiratory Panel (PCR) - Final 04/02/21 11:44 Nasal Secretion SARS-CoV-2 Antigen (Rapid) - Final SARS-CoV-2 (COVID 19) ABG Data ABG results: ABG 04/05/21 15:59 Specimen Type ART Sample Site R Radial pH 7.38 Bicarbonate Actual 25.9 Total CO2 27 Base Excess 1 O2 Saturation 97 O2 % 100 ABG pCO2 43.9 ABG pO2 88 Manoj Test Positive Respiration Rate 14 O2 Delivery Device ET Tube Vent Mode AC Tidal Volume 450 POC PEEP 12 Radiography Diagnostic Testing: Radiology Impression Chest X-Ray 04/05/21 14:05 IMPRESSION: 1. Endotracheal and esophagogastric tubes, as above. 2. Multifocal infiltrates with features commonly reported with COVID pneumonia. Electronically Signed: Deven Dugan MD ([facility]) at 14:25 EST , Service support , Physical Exam Const alert and oriented x3 General Appearance: cooperative, well kempt, well developed and on BiPAP Orientation / Consciousness: awake, oriented to person, oriented to place and oriented to time Nutritional Appearance: morbidly obese HEENT normocephalic, head/scalp atraumatic and moist oral mucous membranes Head and Scalp: normocephalic Eyes PERRL, EOMs intact bilaterally and conjunctivae normal Neck nuchal rigidity, supple, no JVD, thyroid normal and no carotid bruits General: trachea midline Resp no retractions Effort and Inspection: mechanically ventilated Auscultation: diminished lung sounds; Negative for rales, rhonchi or wheezes Cardio no murmurs, no rub and no gallops Cardio Narrative: Heart rate is controlled and rhythm is irregular GI normal to inspection, nondistended, normoactive bowel sounds, soft to palpation, non-tender and non-distended GI Narrative: Patient is morbidly obese. Large ventral hernia noted. Inspection: central obesity Extremity no clubbing, cyanosis or edema Skin no rashes or lesions noted General Skin Exam: no breakdown Neuro oriented x3, CN's II-XII intact bilaterally, no focal motor deficits and no sensory deficits noted Sensorium / Orientation: awake and alert Speech: speech normal Psych thought process normal and affect normal Charges/Coding Procedures Hospitalists Procedures: [id number] Critial Care 1st Hr
[2021-04-06] MEDS: Ipratropium/Albuterol Sulfate 3 ML AMPUL.NEB INHALATION ×3 (07:20→19:00)
[2021-04-06] MEDS: Propofol 10MG/Ml 1,000 MG/100 ML Bottle 12.3 MG CONT INF ×2 (08:00→11:53)
[2021-04-06] MEDS: Cholecalciferol (VIT D3) 25 MCG TABLET (1,000 UNITS) GT (08:07)
[2021-04-06] MEDS: guaiFENesin 10 ML UDC (200MG/10ML) GT ×3 (08:07→20:38)
[2021-04-06] MEDS: Carvedilol 25 MG Tablet GT ×2 (08:07→20:39)
[2021-04-06] MEDS: CHLORHEXIDINE GLUC 2% CLOTH 1 EACH TOWELETTE TOPICAL (08:14)
[2021-04-06] MEDS: APIXABAN 5 MG TABLET GT ×2 (08:18→20:39)
[2021-04-06] MEDS: dexAMETHasone 4 MG/ML Vial 6 MG IV (08:18)
[2021-04-06] MEDS: Chlorhexidine 15 ML PO ×2 (08:19→20:40)
[2021-04-06 09:25] LABS: Pathologist Review Reviewed
[2021-04-06 09:27] LABS: Pathologist Review Reviewed
--- NOTE | 2021-04-06 09:33 | CASEMGMT ---
SW participated in ICU rounds. SW called daughter after rounds to offer support. SW remains available for support to family. ARNIE Guadalupe
[2021-04-06] MEDS: Nystatin Powder 15gm Bottle 1 APPLIC TOPICAL ×2 (11:43→20:39)
[2021-04-06 12:00] LABS: Bedside Glucose 277 mg/dL (70-110)
--- NOTE | 2021-04-06 14:05 | PCM.PN.ID ---
Physical Exam Narrative On vent, no fever Const no apparent distress Resp Auscultation: diminished lung sounds Cardio regular rate and regular rhythm GI normal to inspection, nondistended, normoactive bowel sounds Skin no rashes or lesions noted ID ID: Route of nutrition/ use of supplements: [] Nutritional Intake: [] IV Site: [] Whipple Catheter: [] Assessment & Plan Assessment/Plan (1) COVID-19: PLAN: Sx started around 03/23. Isolate until 04/12. Unvaccinated. On dex, baricitinib, and zosyn. Completed remdesivir. Recommended vaccine once out of isolation and out of the hospital. CT neg for PE. Procal 0.3. On vent. Will follow (2) Acute respiratory failure with hypoxia:
--- NOTE | 2021-04-06 15:00 | PN.HOSP_ITS ---
Subjective Subjective Patient is intubated and sedated. Precedex was added this morning for agitation. She is on 80% with a PEEP of 12. No significant overnight issues other than agitation. Objective Data Objective Data Vital Signs: Vital Signs Temp Pulse Resp BP Pulse Ox 96.6 F L 79 18 151/99 H 94 04/06/21 12:00 04/06/21 14:00 04/06/21 14:00 04/06/21 14:00 04/06/21 14:00 Oxygen Flow Rate (L/min) 100 Oxygen Delivery Method Mechanical Ventilator Weight: 135.7 kg Body Mass Index (BMI) 52.9 Intake & Output: Intake and Output for Last 24 Hours 04/04/21 04/05/21 04/06/21 23:59 23:59 23:59 Intake Total 1320 / 1320 1385.66 / 1497.50 2217.43 / 2217.43 Output Total 2300 / 2300 1975 / 2325 1175 / 1175 Balance -980 / -980 -589.34 / -827.50 1042.43 / 1042.43 Lab / Micro Data Result Diagrams: 04/06/21 03:45 04/06/21 03:45 Labs: Laboratory Results - last 24 hr 04/03/21 04:25: Diff Path Review Reviewed 04/05/21 05:40: Diff Path Review Reviewed 04/05/21 17:56: POC Glucose 287 H 04/05/21 23:56: POC Glucose 317 H 04/06/21 03:45: Sodium 141, Potassium 3.7, Chloride 107, Carbon Dioxide 24.0, Anion Gap 10, BUN 66 H, Creatinine 1.48 H, Estim Creat Clear Calc 33.44, Est GFR (MDRD) Af Amer 46 L, Est GFR (MDRD) Non-Af 38 L, BUN/Creatinine Ratio 44.6 H, Glucose 286 H, Calcium 8.8, Magnesium 2.2, Total Bilirubin 0.70, AST 76 H, ALT 38, Alkaline Phosphatase 88, Total Protein 6.9, Albumin 2.2 L, Globulin 4.7 H, Albumin/Globulin Ratio 0.5 L 04/06/21 03:45: WBC 3.4 L, RBC 4.99, Hgb 14.4, Hct 43.9, MCV 88.0, MCH 28.9, MCHC 32.8, RDW Std Deviation 44.5 H, RDW Coeff of Yoana 13.8, Plt Count 151, MPV 9.7, Immature Gran % (Auto) 0.600, Neut % (Auto) 71.8 H, Lymph % (Auto) 19.1, [place] % (Auto) 8.2, Eos % (Auto) 0.0, Baso % (Auto) 0.3, Absolute Neuts (auto) 2.4, Absolute Lymphs (auto) 0.65 L, Nucleated RBC % 0, Differential Comment SCANNED, Atypical Lymphocytes RARE 04/06/21 06:24: POC Glucose 253 H 04/06/21 11:42: POC Glucose 277 H Micro: Microbiology 04/05/21 13:50 Sputum, Induced/Lukens Gram Stain - Final 04/05/21 13:50 Sputum, Induced/Lukens Respiratory Culture - Preliminary 04/04/21 04:30 Urine Catheter - Whipple Legionella Antigen - Final 04/04/21 04:30 Urine Catheter - Whipple Streptococcus pneumoniae Antigen (M - Final 04/02/21 23:45 Mucosa - Nasopharyngeal Respiratory Panel (PCR) - Final 04/02/21 11:44 Nasal Secretion SARS-CoV-2 Antigen (Rapid) - Final SARS-CoV-2 (COVID 19) ABG Data ABG results: ABG 04/05/21 15:59 Specimen Type ART Sample Site R Radial pH 7.38 Bicarbonate Actual 25.9 Total CO2 27 Base Excess 1 O2 Saturation 97 O2 % 100 ABG pCO2 43.9 ABG pO2 88 Manoj Test Positive Respiration Rate 14 O2 Delivery Device ET Tube Vent Mode AC Tidal Volume 450 POC PEEP 12 Physical Exam Const alert, oriented x3, no apparent distress and healthy appearing Constitutional Narrative: Morbidly obese white female lying in bed intubated and sedated General Appearance: cooperative, well kempt and well developed Orientation / Consciousness: awake, oriented to person, oriented to place and oriented to time Nutritional Appearance: morbidly obese HEENT normocephalic, head/scalp atraumatic and hearing grossly normal bilaterally HEENT Narrative: ET tube in place and secure Head and Scalp: normocephalic Eyes conjunctivae normal Eyes Narrative: Pupils are constricted Neck nuchal rigidity and thyroid normal General: trachea midline Resp no retractions, no use of accessory muscles and clear to auscultation bilaterally Resp Narrative: Secondary to body habitus but overall diminished without any adventitious sounds, Auscultation: Negative for crackles, rales, rhonchi or wheezes Cardio regular rate, S1 normal heart sound, S2 normal heart sound, no murmurs, no rub, no gallops, no clicks and no JVD Cardio Narrative: Heart rate and rhythm is irregular GI normal to inspection, nondistended, normoactive bowel sounds, soft to palpation, non-tender and non-distended GI Narrative: Patient is morbidly obese Palpation: hernia ventral (Large) Extremity no clubbing, cyanosis or edema Peripheral Pulses: Yes pulses 2+ throughout Skin General Skin Exam: no breakdown Neuro Neuro Narrative: Patient is intubated and sedated Psych thought process normal Psych Narrative: Patient appears mildly anxious and scared Assessment & Plan Assessment/Plan (1) Acute respiratory failure with hypoxia: (2) COVID-19: (3) New onset a-fib: (4) Leukopenia: (5) Thrombocytopenia: (6) Hypokalemia: (7) Stage 3b chronic kidney disease: PLAN: Acute hypoxic respiratory failure secondary to COVID-19 pneumonia -Patient is currently on BiPAP with an FiO2 of 100% and an SPO2 of 89-91% -Anticipate that patient will need intubated -Patient is now change her CODE STATUS back to full code as of last evening 04/04/2021 -Continue baricitinib dose 4 of 14 -Continue Decadron dose 4 of 10 -Continue remdesivir dose 4 of 5 -Lasix as needed -Respiratory viral panel is negative -Sputum culture is pending -Encourage prone lying as able -Encourage incentive spirometer and Acapella as able -Duo nebs -Patient is on Eliquis 5 mg p.o. twice daily -Will need isolation until 04/12/2021 as symptoms started approximately 03/23/2021 -Recommend vaccine once out of isolation -Appreciate pulmonary and infectious disease input New onset A. fib -Patient is currently in normal sinus rhythm -We will obtain echocardiogram once patient is out of isolation as there is no change that will be made at this time given acute findings on echo -Patient is on Eliquis 5 mg p.o. twice daily Leukopenia -Mild and counts are improving slowly -Likely related to COVID-19 infection -Continue to monitor counts Thrombocytopenia -Mild and counts are trending up -Current platelet count is 144 -CBC in a.m. Hypokalemia -Resolved Suspected CKD stage IIIb -We have no available serum creatinine measurements prior to admission -Serum creatinine is relatively stable at 1.48 to day on admission was 1.55 -Continue to monitor -I do think it likely that she has CKD given her history of diabetes DM-2 uncontrolled -Hemoglobin A1c was 9.2 on admission -Blood sugars are overall better -Patient is only on glimepiride 4 mg p.o. twice daily at baseline -I would recommend at least starting Metformin upon discharge if patient tole rates it -Continue Lantus but increase to 40 units twice daily -Continue SSI -Accu-Cheks as ordered -Goal blood sugar given critical illness 140-180 Hypertension -Continue carvedilol 25 mg p.o. twice daily -Continue losartan hydrochlorothiazide daily DVT prophylaxis -Continue Eliquis 5 mg p.o. twice daily CODE STATUS -Full code Charges/Coding Visit Charges Inpatient E&M: 03058 Subs Hosp L2
[2021-04-06] MEDS: Vital AF 1.2 Cal Liquid 1,000 ML 60 ML GT (15:08)
--- NOTE | 2021-04-06 16:00 | RAD_ITS ---
STUDY: X-RAY CHEST REASON FOR EXAM: Female, 61 years old. PICC line insertion. TECHNIQUE: Single AP portable view of the chest. COMPARISON: 04/05/2021 FINDINGS: There is a right-sided PICC line with its tip in the distal superior vena cava. Table NG tube and enteric tube. Again seen is diffuse groundglass infiltrates in the lungs essentially unchanged from previous examination. There is no demonstrated pleural abnormality. Normal size heart. There is no change in the mediastinum, nate, pulmonary arteries or aorta. No visualized osseous changes. There is no demonstrated abnormality of the visualized soft tissue structures of the upper abdomen. RAD/CXR for Line Placement IMPRESSION: 1. Right-sided PICC line as described. 2. No other major interval change when compared to study of earlier. Electronically Signed: Bruno Melgar DO at 17:24 EST Tel [phone], Service support ,
[2021-04-06 18:36] LABS: Bedside Glucose 413 mg/dL (70-110)
[2021-04-06 23:26] LABS: Bedside Glucose 303 mg/dL (70-110)
[2021-04-07] VITALS (41 sets, daily range): BP systolic 93–154; BP diastolic 55–93; PULSE 75–114; RESP 13–21; TEMP 36.2–36.9; O2SAT 83–100
[2021-04-07] MEDS: Propofol 10MG/Ml 1,000 MG/100 ML Bottle 12.3 MG CONT INF (02:33)
[2021-04-07] MEDS: CHLORHEXIDINE GLUC 2% CLOTH 1 EACH TOWELETTE TOPICAL (04:40)
[2021-04-07] MEDS: guaiFENesin 10 ML UDC (200MG/10ML) GT ×4 (04:40→19:59)
[2021-04-07] MEDS: Vital AF 1.2 Cal Liquid 1,000 ML 60 ML GT ×2 (04:41→21:18)
[2021-04-07 04:47] LABS: Absolute Lymphocyte Count 0.95 X10^3/uL (0.83-4.51); Absolute Neutrophil Count 4.8 X10^3/uL (2.0-7.7); Eosinophil# 0.01 X10^3/uL; Eosinophils% 0.2 % (0-5); Hematocrit 34.7 % (37-47); Hemoglobin 11.4 g/dL (12.0-15.0); Lymphocyte # 0.95 X10^3/ul (0.83-4.51); Lymphocyte % 15.4 % (19-41); Mean Corp Hgb Conc 32.9 g/dL (32-36); Mean Corpuscular Volume 88.3 fL (81-99); Mean Platelet Vol. 10.1 fl (6.2-12.0); Monocyte# 0.35 X10^3/uL; Monocyte% 5.7 % (0-10); NRBC Flagged by Analyzer 0 % (0-5); Neutrophil # 4.81 X10^3/uL (2.7-7.7); Neutrophil % 78.1 % (47-70); POSITIVE MORPHOLOGY YES; Platelet Count 186 K/mm3 (150-450); RBC Distribution Width CV 13.4 % (11.6-14.6); Red Blood Count 3.93 M/mm3 (4.2-5.4); White Blood Count 6.2 K/mm3 (4.4-11.0)
[2021-04-07 04:50] LABS: Differential Indicated SCAN CRITERIA MET
[2021-04-07 05:31] LABS: Anion Gap 9 (5-15); BUN 48 mg/dL (7-18); BUN/Creat Ratio 43.6 RATIO (10-20); Calcium,Total 7.5 mg/dL (8.5-10.1); Chloride 110 mmol/L (98-107); EST Glomerular Filtration Rate 54 mL/min (>60); Est Glom Filt Rate - Afr Amer 65 mL/min (>60); Estimated Creatinine Clearance 44.99 ml/min; Glucose 363 mg/dL (74-106); Potassium 3.5 mmol/L (3.5-5.1); Sodium Level 142 mmol/L (136-145)
--- NOTE | 2021-04-07 05:40 | PN.CC_ITS ---
Assessment & Plan Assessment/Plan (1) Acute respiratory failure with hypoxia: (2) COVID-19: (3) New onset a-fib: PLAN: RECOMMENDATIONS: 1. Continue baricitinib (04/16/2021) and Decadron (04/12/2021). 2. Continue empiric antimicrobials to complete 7-day treatment course. 3. Continue scheduled bronchodilators. 4. Continue to wean FiO2 and PEEP as tolerated to maintain saturations at or above 90%. 5. Continue current sedation regimen. 6. Continue tube feeds as tolerated. 7. Continue Eliquis and appropriate GI prophylaxis. IMPRESSIONS: 1. Acute hypoxic respiratory failure secondary to ARDS secondary to COVID-19 The patient was initially admitted to the hospital April 02 and experienced worsening hypoxemia, culminating in ICU transfer and subsequent intubation on April 05. She will be continued on assist control mode mechanical ventilation. FiO2 and PEEP will be weaned to maintain saturations at or above 90%. The patient has completed a treatment course of remdesivir and will remain on baricitinib and Decadron as ordered. Given clinical decompensation, recommend completing a 7-day treatment course of antimicrobials. Continue tube feeds as tolerated along with Eliquis and appropriate GI prophylaxis. 2. Acute kidney injury Likely prerenal/ATN in the setting of #1. Creatinine is slowly improving. Continue to monitor urine output for now. No current indication for renal repla cement therapy. 3. Hypertension/morbid obesity/unvaccinated status/no intubation Complicates care, management, recovery and prognosis. Okay to continue with baseline medications at this time. High clinical suspicion for an element of obstructive sleep apnea. This will have to be addressed as an outpatient, but patient may benefit from extubation to BiPAP. TIME: 34 minutes of critical care time, independent of procedures, was spent addressi ng the patient's acute hypoxemic respiratory failure secondary to COVID-19 pneumonia, acute kidney injury, review of all data and collaboration with the care team. Subjective Subjective The patient was seen and examined at the bedside this morning. Events from the last 24 hours have been reviewed. The patient is currently afebrile, hemodynamically stable and maintaining appropriate oxygen saturations on assist control mode mechanical ventilation with an FiO2 requirement of 100%. The patient is currently documented to be overall net +2.2 L for the hospitalization. Creatinine has improved to 1.1 this morning. The patient remains on antimicrobials, bronchodilators, Decadron, baricitinib and Eliquis. She is currently sedated on propofol, fentanyl and Precedex. Objective Data Objective Data The patient's most recent lab work, culture data and imaging studies have all been personally reviewed. Rapid coronavirus antigen testing was positive on April 02. Respiratory viral panel was negative. Strep and urine Legionella antigens were negative. Sputum culture is pending. Vital Signs: Vital Signs Temp Pulse Resp BP Pulse Ox 97.9 F 88 21 H 126/71 H 83 04/07/21 04:00 04/07/21 05:06 04/07/21 05:06 04/07/21 05:00 04/07/21 05:06 Oxygen Flow Rate (L/min) 100 Oxygen Delivery Method Mechanical Ventilator Weight: 136 kg Body Mass Index (BMI) 52.9 Intake & Output: Intake and Output for Last 24 Hours 04/05/21 04/06/21 04/07/21 23:59 23:59 23:59 Intake Total 1385.66 / 1497.50 3259.23 / 3404.73 1452.84 / 1452.84 Output Total 1975 / 2325 1825 / 1825 450 / 450 Balance -589.34 / -827.50 1434.23 / 1579.73 1002.84 / 1002.84 Lab / Micro Data Attestation: I reviewed the patient's lab results. Result Diagrams: 04/07/21 04:15 04/07/21 04:15 Labs: Laboratory Results - last 24 hr 04/03/21 04:25: Diff Path Review Reviewed 04/05/21 05:40: Diff Path Review Reviewed 04/06/21 03:45: Sodium 141, Potassium 3.7, Chloride 107, Carbon Dioxide 24.0, Anion Gap 10, BUN 66 H, Creatinine 1.48 H, Estim Creat Clear Calc 33.44, Est GFR (MDRD) Af Amer 46 L, Est GFR (MDRD) Non-Af 38 L, BUN/Creatinine Ratio 44.6 H, Glucose 286 H, Calcium 8.8, Magnesium 2.2, Total Bilirubin 0.70, AST 76 H, ALT 38, Alkaline Phosphatase 88, Total Protein 6.9, Albumin 2.2 L, Globulin 4.7 H, Albumin/Globulin Ratio 0.5 L 04/06/21 06:24: POC Glucose 253 H 04/06/21 11:42: POC Glucose 277 H 04/06/21 18:30: POC Glucose 413 H 04/06/21 23:08: POC Glucose 303 H 04/07/21 04:15: WBC 6.2, RBC 3.93 L, Hgb 11.4 L, Hct 34.7 L, MCV 88.3, MCH 29.0, MCHC 32.9, RDW Std Deviation 44.0 H, RDW Coeff of Yoana 13.4, Plt Count 186, MPV 10.1, Immature Gran % (Auto) 0.600, Neut % (Auto) 78.1 H, Lymph % (Auto) 15.4 L, [place] % (Auto) 5.7, Eos % (Auto) 0.2, Baso % (Auto) 0.0, Absolute Neuts (auto) 4.8, Absolute Lymphs (auto) 0.95, Nucleated RBC % 0 04/07/21 04:15: Sodium 142, Potassium 3.5, Chloride 110 H, Carbon Dioxide 23.0, Anion Gap 9, BUN 48 H, Creatinine 1.10 H, Estim Creat Clear Calc 44.99, Est GFR (MDRD) Af Amer 65, Est GFR (MDRD) Non-Af 54 L, BUN/Creatinine Ratio 43.6 H, Glucose 363 H, Calcium 7.5 L Micro: Microbiology 04/05/21 13:50 Sputum, Induced/Lukens Gram Stain - Final 04/05/21 13:50 Sputum, Induced/Lukens Respiratory Culture - Preliminary 04/04/21 04:30 Urine Catheter - Whipple Legionella Antigen - Final 04/04/21 04:30 Urine Catheter - Whipple Streptococcus pneumoniae Antigen (M - Final 04/02/21 23:45 Mucosa - Nasopharyngeal Respiratory Panel (PCR) - Final 04/02/21 11:44 Nasal Secretion SARS-CoV-2 Antigen (Rapid) - Final SARS-CoV-2 (COVID 19) Radiography Diagnostic Testing: Radiology Impression Chest X-Ray 04/06/21 16:00 IMPRESSION: 1. Right-sided PICC line as described. 2. No other major interval change when compared to study of earlier. Electronically Signed: Bruno Melgar DO at 17:24 EST Tel [phone], Service support , Physical Exam Const General Appearance: intubated and patient mechanically ventilated Nutritional Appearance: morbidly obese HEENT normocephalic and head/scalp atraumatic Mouth: endotracheal tube in place and OG tube in place Eyes PERRL and conjunctivae normal Neck supple General: trachea midline Chest inspection of chest normal Resp Auscultation: diminished lung sounds Cardio regular rate and regular rhythm GI normal to inspection, nondistended, normoactive bowel sounds Extremity no clubbing, cyanosis or edema Skin no rashes or lesions noted Neuro Sensorium / Orientation: sedated on vent Charges/Coding Procedures Hospitalists Procedures: 37926 Critial Care 1st Hr
[2021-04-07 05:59] LABS: Differential Comment SCANNED
--- NOTE | 2021-04-07 06:00 | RAD_ITS ---
STUDY: X-RAY CHEST REASON FOR EXAM: Female, 61 years old. COVID , intubated TECHNIQUE: AP COMPARISON: Yesterday FINDINGS: Endotracheal and esophagogastric tube stable. Right arm PICC is stable. EKG leads project over the chest. Multifocal infiltrates with features commonly reported with COVID pneumonia. No pneumothorax. Normal size heart. Normal mediastinum and nate. Normal visualized pulmonary arteries. Normal visualized aortic arch and descending thoracic aorta. No acute bony process. There is no demonstrated abnormality of the visualized soft tissue structures of the upper abdomen. RAD/Chest 1 View (Portable) IMPRESSION: Stable multilobar airspace disease/pneumonia. Electronically Signed: Deven Dugan MD ([place]) at 14:35 EST , Service support ,
[2021-04-07] MEDS: Insulin Lispro 100 UNIT/ML INSULN.PEN SC ×4 (06:13→23:19)
[2021-04-07 06:26] LABS: Bedside Glucose 334 mg/dL (70-110)
[2021-04-07] MEDS: Propofol 10MG/Ml 1,000 MG/100 ML Bottle 32.6 MG CONT INF ×2 (06:38→09:25)
[2021-04-07] MEDS: TITRATION PARAMETER CHANGE 1 EACH IV (06:38)
[2021-04-07] MEDS: Ipratropium/Albuterol Sulfate 3 ML AMPUL.NEB INHALATION ×3 (07:02→19:00)
[2021-04-07] MEDS: Nystatin Powder 15gm Bottle 1 APPLIC TOPICAL ×2 (08:30→21:39)
[2021-04-07] MEDS: Chlorhexidine 15 ML PO ×2 (08:39→20:04)
[2021-04-07] MEDS: 0.9% Saline Lock 10 ML Syringe IV (08:39)
[2021-04-07] MEDS: Cholecalciferol (VIT D3) 25 MCG TABLET (1,000 UNITS) GT (08:40)
[2021-04-07] MEDS: Carvedilol 25 MG Tablet GT ×2 (08:41→19:59)
[2021-04-07] MEDS: APIXABAN 5 MG TABLET GT ×2 (08:42→19:59)
[2021-04-07] MEDS: dexAMETHasone 4 MG/ML Vial 6 MG IV (08:42)
[2021-04-07] MEDS: Furosemide 40 MG/4 ML Vial IV (08:48)
--- NOTE | 2021-04-07 10:08 | PN.HOSP_ITS ---
Subjective Subjective Patient remains intubated and sedated. On 95% FiO2 with a PEEP of 14. Goal RASS is -4 today to avoid agitation that causes desaturation. No acute issues overnight. Patient is tolerating tube feed and having bowel function. Objective Data Objective Data Vital Signs: Vital Signs Temp Pulse Resp BP Pulse Ox 97.9 F 94 19 H 95/66 96 04/07/21 04:00 04/07/21 07:03 04/07/21 07:03 04/07/21 07:00 04/07/21 07:03 Oxygen Flow Rate (L/min) 100 Oxygen Delivery Method Mechanical Ventilator Weight: 136 kg Body Mass Index (BMI) 52.9 Intake & Output: Intake and Output for Last 24 Hours 04/05/21 04/06/21 04/07/21 23:59 23:59 23:59 Intake Total 1385.66 / 1497.50 3259.23 / 3404.73 1904.77 / 1904.77 Output Total 1975 / 2325 1825 / 1825 650 / 650 Balance -589.34 / -827.50 1434.23 / 1579.73 1254.77 / 1254.77 Lab / Micro Data Result Diagrams: 04/07/21 04:15 04/07/21 04:15 Labs: Laboratory Results - last 24 hr 04/06/21 11:42: POC Glucose 277 H 04/06/21 18:30: POC Glucose 413 H 04/06/21 23:08: POC Glucose 303 H 04/07/21 04:15: WBC 6.2, RBC 3.93 L, Hgb 11.4 L, Hct 34.7 L, MCV 88.3, MCH 29.0, MCHC 32.9, RDW Std Deviation 44.0 H, RDW Coeff of Yoana 13.4, Plt Count 186, MPV 10.1, Immature Gran % (Auto) 0.600, Neut % (Auto) 78.1 H, Lymph % (Auto) 15.4 L, [place] % (Auto) 5.7, Eos % (Auto) 0.2, Baso % (Auto) 0.0, Absolute Neuts (auto) 4. 8, Absolute Lymphs (auto) 0.95, Nucleated RBC % 0, Differential Comment SCANNED 04/07/21 04:15: Sodium 142, Potassium 3.5, Chloride 110 H, Carbon Dioxide 23.0, Anion Gap 9, BUN 48 H, Creatinine 1.10 H, Estim Creat Clear Calc 44.99, Est GFR (MDRD) Af Amer 65, Est GFR (MDRD) Non-Af 54 L, BUN/Creatinine Ratio 43.6 H, Glucose 363 H, Calcium 7.5 L 04/07/21 06:11: POC Glucose 334 H Micro: Microbiology 04/05/21 13:50 Sputum, Induced/Lukens Gram Stain - Final 04/05/21 13:50 Sputum, Induced/Lukens Respiratory Culture - Preliminary 04/04/21 04:30 Urine Catheter - Whipl[place] Legionella Antigen - Final 04/04/21 04:30 Urine Catheter - Whipple Streptococcus pneumoniae Antigen (M - Final 04/02/21 23:45 Mucosa - Nasopharyngeal Respiratory Panel (PCR) - Final 04/02/21 11:44 Nasal Secretion SARS-CoV-2 Antigen (Rapid) - Final SARS-CoV-2 (COVID 19) Radiography Diagnostic Testing: Radiology Impression Chest X-Ray 04/06/21 16:00 IMPRESSION: 1. Right-sided PICC line as described. 2. No other major interval change when compared to study of earlier. Electronically Signed: Bruno Melgar DO at 17:24 EST Tel [phone], Service support , Physical Exam Const alert, oriented x3, no apparent distress and healthy appearing Constitutional Narrative: Morbidly obese white female lying in bed intubated and sedated General Appearance: cooperative, well kempt and well developed Orientation / Consciousness: awake, oriented to person, oriented to place and oriented to time Nutritional Appearance: morbidly obese HEENT normocephalic, head/scalp atraumatic and hearing grossly normal bilaterally HEENT Narrative: ET tube in place Head and Scalp: normocephalic Neck nuchal rigidity and thyroid normal General: trachea midline Resp no retractions, no use of accessory muscles and clear to auscultation bilaterally Resp Narrative: Secondary to body habitus but overall diminished without any adventitious sounds, Auscultation: Negative for crackles, rales, rhonchi or wheezes Cardio regular rate, S1 normal heart sound, S2 normal heart sound, no murmurs, no rub, no gallops, no clicks and no JVD Cardio Narrative: Heart rate and rhythm is irregular GI normal to inspection, nondistended, normoactive bowel sounds, soft to palpation, non-tender and non-distended GI Narrative: Patient is morbidly obese, large ventral hernia noted Palpation: hernia ventral (Large) Extremity no clubbing, cyanosis or edema Skin no rashes or lesions noted, no wounds, skin turgor normal, no jaundice, no petechiae and no mottling General Skin Exam: no breakdown Neuro Neuro Narrative: Patient is intubated and sedated Psych thought process normal Assessment & Plan Assessment/Plan (1) Acute respiratory failure with hypoxia: (2) COVID-19: (3) New onset a-fib: (4) Leukopenia: (5) Thrombocytopenia: (6) Hypokalemia: (7) Stage 3b chronic kidney disease: PLAN: Acute hypoxic respiratory failure secondary to COVID-19 pneumonia -Patient is currently on BiPAP with an FiO2 of 100% and an SPO2 of 89-91% -Anticipate that patient will need intubated -Patient is now change her CODE STATUS back to full code as of last evening 04/04/2021 -Continue baricitinib dose 5 of 14 -Continue Decadron dose 5 of 10 -Continue remdesivir dose 5 of 5 -Lasix as needed--> dosed with 40 mg IV push today -Respiratory viral panel is negative -Sputum culture is pending -Encourage prone lying as able -Encourage incentive spirometer and Acapella as able -Duo nebs -Patient is on Eliquis 5 mg p.o. twice daily -Will need isolation until 04/12/2021 as symptoms started approximately 03/23/2021 -Recommend vaccine once out of isolation -Appreciate pulmonary and infectious disease input New onset A. fib/flutter -Patient is currently in a flutter with variable block -We will obtain echocardiogram once patient is out of isolation as there is no change that will be made at this time given acute findings on echo -Rate is controlled -Patient is on Eliquis 5 mg p.o. twice daily Leukopenia -Resolved -Was likely related to acute Covid infection Thrombocytopenia -Resolved -Was likely related to acute Covid infection Suspected CKD stage IIIb -We have no available serum creatinine measurements prior to admission -Serum creatinine is relatively stable at 1.48 to day on admission was 1.55 -Continue to monitor -I do think it likely that she has CKD given her history of diabetes DM-2 uncontrolled -Hemoglobin A1c was 9.2 on admission -Blood sugars are overall better -Patient is only on glimepiride 4 mg p.o. twice daily at baseline -I would recommend at least starting Metformin upon discharge if patient tolerates it -Continue Lantus but increase to 55 units twice daily and add 10 units every 6 hours as blood sugars are the upper 2-300 range -Continue SSI -Accu-Cheks as ordered -Goal blood sugar given critical illness 140-180 Hypertension -Continue carvedilol 25 mg p.o. twice daily -Continue losartan hydrochlorothiazide daily DVT prophylaxis -Continue Eliquis 5 mg p.o. twice daily CODE STATUS -Full code Charges/Coding Visit Charges Inpatient E&M: 85157 Subs Hosp L2
[2021-04-07] MEDS: Propofol 10MG/Ml 1,000 MG/100 ML Bottle 28.6 MG CONT INF ×5 (11:20→23:12)
[2021-04-07] MEDS: Insulin Lispro 100 UNIT/ML INSULN.PEN 10 UNIT SC ×3 (11:46→23:20)
[2021-04-07 12:25] LABS: Bedside Glucose 240 mg/dL (70-110)
[2021-04-07 16:56] LABS: Bedside Glucose 293 mg/dL (70-110)
[2021-04-07 23:26] LABS: Bedside Glucose 257 mg/dL (70-110)
[2021-04-08] VITALS (36 sets, daily range): BP systolic 93–125; BP diastolic 52–82; PULSE 85–126; RESP 12–20; TEMP 36.4–36.8; O2SAT 86–99
[2021-04-08] MEDS: Propofol 10MG/Ml 1,000 MG/100 ML Bottle 28.6 MG CONT INF ×7 (02:33→22:17)
[2021-04-08 04:18] LABS: Absolute Lymphocyte Count 0.72 X10^3/uL (0.83-4.51); Absolute Neutrophil Count 3.6 X10^3/uL (2.0-7.7); Basophil# 0.01 X10^3/uL; Basophil% 0.2 % (0-1); Hematocrit 40.8 % (37-47); Hemoglobin 13.3 g/dL (12.0-15.0); Lymphocyte # 0.72 X10^3/ul (0.83-4.51); Lymphocyte % 15.3 % (19-41); Mean Corp Hgb Conc 32.6 g/dL (32-36); Mean Corpuscular Volume 89.1 fL (81-99); Monocyte# 0.37 X10^3/uL; Monocyte% 7.9 % (0-10); NRBC Flagged by Analyzer 0 % (0-5); Neutrophil # 3.59 X10^3/uL (2.7-7.7); Neutrophil % 76.2 % (47-70); Platelet Count 162 K/mm3 (150-450); RBC Distribution Width CV 13.6 % (11.6-14.6); RBC Distribution Width SD 44.6 fl (35.1-43.9); Red Blood Count 4.58 M/mm3 (4.2-5.4); White Blood Count 4.7 K/mm3 (4.4-11.0)
[2021-04-08] MEDS: guaiFENesin 10 ML UDC (200MG/10ML) GT ×4 (04:29→20:09)
[2021-04-08 04:31] LABS: Anion Gap 8 (5-15); BUN 63 mg/dL (7-18); BUN/Creat Ratio 41.2 RATIO (10-20); Calcium,Total 8.3 mg/dL (8.5-10.1); Chloride 111 mmol/L (98-107); Creatinine, Serum 1.53 mg/dL (0.55-1.02); EST Glomerular Filtration Rate 37 mL/min (>60); Est Glom Filt Rate - Afr Amer 45 mL/min (>60); Estimated Creatinine Clearance 32.35 ml/min; Glucose 202 mg/dL (74-106); Potassium 3.6 mmol/L (3.5-5.1); Sodium Level 143 mmol/L (136-145)
--- NOTE | 2021-04-08 05:54 | PCM.PN.INT ---
Assessment & Plan Assessment/Plan (1) Acute respiratory failure with hypoxia: (2) COVID-19: (3) New onset a-fib: PLAN: RECOMMENDATIONS: 1. Continue baricitinib (04/16/2021) and Decadron (04/12/2021). 2. Continue empiric antimicrobials to complete 7-day treatment course. 3. Continue scheduled bronchodilators. 4. Continue to wean FiO2 and PEEP as tolerated to maintain saturations at or above 90%. 5. Continue current sedation regimen. 6. Continue tube feeds as tolerated. 7. Continue Eliquis and appropriate GI prophylaxis. IMPRESSIONS: 1. Acute hypoxic respiratory failure secondary to ARDS secondary to COVID-19 The patient was initially admitted to the hospital April 02 and experienced worsening hypoxemia, culminating in ICU transfer and subsequent intubation on April 05. She will be continued on assist control mode mechanical ventilation. FiO2 and PEEP will be weaned to maintain saturations at or above 90%. The patient has completed a treatment course of remdesivir and will remain on baricitinib and Decadron as ordered. Given clinical decompensation, recommend completing a 7-day treatment course of antimicrobials. Continue tube feeds as tolerated along with Eliquis and appropriate GI prophylaxis. 2. Acute kidney injury Likely prerenal/ATN in the setting of #1. Creatinine is slowly improving. Continue to monitor urine output for now. No current indication for renal replacement therapy. 3. Hypertension/morbid obesity/unvaccinated status/no intubation Complicates care, management, recovery and prognosis. Okay to continue with baseline medications at this time. High clinical suspicion for an element of obstructive sleep apnea. This will have to be addressed as an outpatient, but patient may benefit from extubation to BiPAP. TIME: 35 minutes of critical care time, independent of procedures, was spent addressing the patient's acute hypoxemic respiratory failure secondary to COVID-19 pneumonia, acute kidney injury, review of all data and collaboration with the care team. Subjective Subjective The patient was seen and examined at the bedside this morning. Events from the last 24 hours have been reviewed. The patient is currently afebrile, hemodynamically stable and maintaining appropriate oxygen saturations on assist control mode mechanical ventilation with an FiO2 requirement of 60% and PEEP of 14. The patient is currently documented to be overall net +4.5 L for the hospitalization. Creatinine remains elevated at 1.5. The patient remains on antimicrobials, bronchodilators, Decadron, baricitinib and Eliquis. She is currently sedated on propofol, fentanyl and Precedex. The patient is tolerating tube feeds. Objective Data Objective Data The patient's most recent lab work, culture data and imaging studies have all been personally reviewed. Rapid coronavirus antigen testing was positive on April 02. Respiratory viral panel was negative. Strep and urine Legionella antigens were negative. Sputum culture is pending. Vital Signs: Vital Signs Temp Pulse Resp BP Pulse Ox 98.0 F 102 H 18 113/72 92 04/08/21 04:00 04/08/21 05:00 04/08/21 05:00 04/08/21 05:00 04/08/21 05:00 Oxygen Flow Rate (L/min) 100 Oxygen Delivery Method Mechanical Ventilator Weight: 136 kg Body Mass Index (BMI) 52.9 Intake & Output: Intake and Output for Last 24 Hours 04/06/21 04/07/21 04/08/21 23:59 23:59 23:59 Intake Total 3259.23 / 3404.73 5393.42 / 5472.10 532.43 / 532.43 Output Total 1825 / 1825 2625 / 2625 75 / 75 Balance 1434.23 / 1579.73 2768.42 / 2847.10 457.43 / 457.43 Lab / Micro Data Attestation: I reviewed the patient's lab results. Result Diagrams: 04/08/21 04:02 04/08/21 04:02 Labs: Laboratory Results - last 24 hr 04/07/21 04:15: Differential Comment SCANNED 04/07/21 06:11: POC Glucose 334 H 04/07/21 11:40: POC Glucose 240 H 04/07/21 16:45: POC Glucose 293 H 04/07/21 23:18: POC Glucose 257 H 04/08/21 04:02: WBC 4.7, RBC 4.58, Hgb 13.3, Hct 40.8, MCV 89.1, MCH 29.0, MCHC 32.6, RDW Std Deviation 44.6 H, RDW Coeff of Yoana 13.6, Plt Count 162, MPV 10.0, Immature Gran % (Auto) 0.400, Neut % (Auto) 76.2 H, Lymph % (Auto) 15.3 L, [place] % (Auto) 7.9, Eos % (Auto) 0.0, Baso % (Auto) 0.2, Absolute Neuts (auto) 3.6, Absolute Lymphs (auto) 0.72 L, Nucleated RBC % 0 04/08/21 04:02: Sodium 143, Potassium 3.6, Chloride 111 H, Carbon Dioxide 24.0, Anion Gap 8, BUN 63 H, Creatinine 1.53 H, Estim Creat Clear Calc 32.35, Est GFR (MDRD) Af Amer 45 L, Est GFR (MDRD) Non-Af 37 L, BUN/Creatinine Ratio 41.2 H, Glucose 202 H, Calcium 8.3 L Micro: Microbiology 04/05/21 13:50 Sputum, Induced/Lukens Gram Stain - Final 04/05/21 13:50 Sputum, Induced/Lukens Respiratory Culture - Preliminary 04/04/21 04:30 Urine Catheter - Whipple Legionella Antigen - Final 04/04/21 04:30 Urine Catheter - Whipple Streptococcus pneumoniae Antigen (M - Final 04/02/21 23:45 Mucosa - Nasopharyngeal Respiratory Panel (PCR) - Final 04/02/21 11:44 Nasal Secretion SARS-CoV-2 Antigen (Rapid) - Final SARS-CoV-2 (COVID 19) Radiography Diagnostic Testing: Radiology Impression Chest X-Ray 04/07/21 06:00 IMPRESSION: Stable multilobar airspace disease/pneumonia. Electronically Signed: Deven Dugan MD ([facility]) at 14:35 EST , Service support , Physical Exam Const General Appearance: intubated and patient mechanically ventilated Nutritional Appearance: morbidly obese HEENT normocephalic and head/scalp atraumatic Mouth: endotracheal tube in place and OG tube in place Eyes PERRL and conjunctivae normal Neck supple General: trachea midline Chest inspection of chest normal Resp Auscultation: diminished lung sounds Cardio regular rate and regular rhythm GI normal to inspection, nondistended, normoactive bowel sounds Extremity no clubbing, cyanosis or edema Skin no rashes or lesions noted Neuro Sensorium / Orientation: sedated on vent Charges/Coding Procedures Hospitalists Procedures: 45813 Critial Care 1st Hr
[2021-04-08 06:05] LABS: Bedside Glucose 166 mg/dL (70-110)
[2021-04-08] MEDS: Insulin Lispro 100 UNIT/ML INSULN.PEN 10 UNIT SC ×3 (06:17→16:56)
[2021-04-08] MEDS: Insulin Lispro 100 UNIT/ML INSULN.PEN SC ×2 (06:17→16:57)
[2021-04-08] MEDS: Ipratropium/Albuterol Sulfate 3 ML AMPUL.NEB INHALATION ×2 (07:06→12:48)
[2021-04-08] MEDS: Nystatin Powder 15gm Bottle 1 APPLIC TOPICAL ×2 (08:58→20:06)
[2021-04-08] MEDS: APIXABAN 5 MG TABLET GT ×2 (08:59→20:08)
[2021-04-08] MEDS: dexAMETHasone 4 MG/ML Vial 6 MG IV (08:59)
[2021-04-08] MEDS: Carvedilol 25 MG Tablet GT ×2 (08:59→20:07)
[2021-04-08] MEDS: Cholecalciferol (VIT D3) 25 MCG TABLET (1,000 UNITS) GT (09:00)
[2021-04-08] MEDS: Chlorhexidine 15 ML PO ×2 (09:00→20:06)
[2021-04-08] MEDS: CHLORHEXIDINE GLUC 2% CLOTH 1 EACH TOWELETTE TOPICAL (09:00)
[2021-04-08 11:56] LABS: Bedside Glucose 134 mg/dL (70-110)
--- NOTE | 2021-04-08 12:05 | RAD_ITS ---
STUDY: X-RAY CHEST REASON FOR EXAM: Female, 61 years old. SOB TECHNIQUE: AP COMPARISON: Yesterday FINDINGS: Endotracheal (terminates 1.7 cm above the anny) and esophagogastric tube stable. Right arm PICC is stable. EKG leads project over the chest. Stable multilobar airspace disease. No pneumothorax. Normal size heart. Normal mediastinum and nate. Normal visualized pulmonary arteries. Normal visualized aortic arch and descending thoracic aorta. No acute bony process. There is no demonstrated abnormality of the visualized soft tissue structures of the upper abdomen. RAD/Chest 1 View (Portable) IMPRESSION: Stable multilobar airspace disease/pneumonia. Electronically Signed: Deven Dugan MD ([facility]) at 12:35 EST , Service support ,
--- NOTE | 2021-04-08 15:25 | PCM.PN.HOSP ---
Subjective Subjective Patient remains intubated and sedated. Sedation remains deep. Patient has been able to have some intermittent decreases in her FiO2 but with any movement passively of the patient her oxygen requirements increased and she remains on 100% with 14 of PEEP at this time. Per discussion with nursing patient is tolerating tube feeds well but has not had a bowel movement in several days. Objective Data Objective Data Vital Signs: Vital Signs Temp Pulse Resp BP Pulse Ox 97.5 F L 91 19 H 98/82 H 98 04/08/21 12:00 04/08/21 14:00 04/08/21 14:00 04/08/21 14:00 04/08/21 14:00 Oxygen Flow Rate (L/min) 100 Oxygen Delivery Method Mechanical Ventilator Weight: 136.4 kg Body Mass Index (BMI) 52.9 Intake & Output: Intake and Output for Last 24 Hours 04/06/21 04/07/21 04/08/21 23:59 23:59 23:59 Intake Total 3259.23 / 3404.73 5393.42 / 5472.10 1328.46 / 1328.46 Output Total 1825 / 1825 2625 / 2625 325 / 325 Balance 1434.23 / 1579.73 2768.42 / 2847.10 1003.46 / 1003.46 Lab / Micro Data Result Diagrams: 04/08/21 04:02 04/08/21 04:02 Labs: Laboratory Results - last 24 hr 04/07/21 16:45: POC Glucose 293 H 04/07/21 23:18: POC Glucose 257 H 04/08/21 04:02: WBC 4.7, RBC 4.58, Hgb 13.3, Hct 40.8, MCV 89.1, MCH 29.0, MCHC 32.6, RDW Std Deviation 44.6 H, RDW Coeff of Yoana 13.6, Plt Count 162, MPV 10.0, Immature Gran % (Auto) 0.400, Neut % (Auto) 76.2 H, Lymph % (Auto) 15.3 L, [place] % (Auto) 7.9, Eos % (Auto) 0.0, Baso % (Auto) 0.2, Absolute Neuts (auto) 3.6, Absolute Lymphs (auto) 0.72 L, Nucleated RBC % 0 04/08/21 04:02: Sodium 143, Potassium 3.6, Chloride 111 H, Carbon Dioxide 24.0, Anion Gap 8, BUN 63 H, Creatinine 1.53 H, Estim Creat Clear Calc 32.35, Est GFR (MDRD) Af Amer 45 L, Est GFR (MDRD) Non-Af 37 L, BUN/Creatinine Ratio 41.2 H, Glucose 202 H, Calcium 8.3 L 04/08/21 06:00: POC Glucose 166 H 04/08/21 11:23: POC Glucose 134 H Micro: Microbiology 04/05/21 13:50 Sputum, Induced/Lukens Gram Stain - Final 04/05/21 13:50 Sputum, Induced/Lukens Respiratory Culture - Final 04/04/21 04:30 Urine Catheter - Whipple Legionella Antigen - Final 04/04/21 04:30 Urine Catheter - Whipple Streptococcus pneumoniae Antigen (M - Final 04/02/21 23:45 Mucosa - Nasopharyngeal Respiratory Panel (PCR) - Final 04/02/21 11:44 Nasal Secretion SARS-CoV-2 Antigen (Rapid) - Final SARS-CoV-2 (COVID 19) Radiography Diagnostic Testing: Radiology Impression Chest X-Ray 04/08/21 12:05 IMPRESSION: Stable multilobar airspace disease/pneumonia. Electronically Signed: Deven Dugan MD ([facility]) at 12:35 EST , Service support , Physical Exam Const alert, oriented x3, no apparent distress and healthy appearing Constitutional Narrative: Morbidly obese white female lying in bed intubated and sedated General Appearance: cooperative, well kempt and well developed Orientation / Consciousness: awake, oriented to person, oriented to place and oriented to time Exam Limitations: no limitations Nutritional Appearance: morbidly obese HEENT normocephalic, head/scalp atraumatic and hearing grossly normal bilaterally HEENT Narrative: ET tube in place Head and Scalp: normocephalic Neck nuchal rigidity and thyroid normal General: trachea midline Resp no retractions, no use of accessory muscles and clear to auscultation bilaterally Resp Narrative: Secondary to body habitus but overall diminished without any adventitious sounds, Auscultation: Negative for crackles, rales, rhonchi or wheezes Cardio regular rate, S1 normal heart sound, S2 normal heart sound, no murmurs, no rub, no gallops, no clicks and no JVD Cardio Narrative: Heart rate and rhythm is irregular GI normal to inspection, nondistended, normoactive bowel sounds, soft to palpation, non-tender and non-distended GI Narrative: Patient is morbidly obese, large ventral hernia noted Palpation: hernia ventral (Large) Extremity no clubbing, cyanosis or edema Peripheral Pulses: Yes pulses 2+ throughout Skin no rashes or lesions noted, no wounds, skin turgor normal, no jaundice, no petechiae and no mottling General Skin Exam: no breakdown Neuro Neuro Narrative: Patient is intubated and sedated Psych thought process normal Assessment & Plan Assessment/Plan (1) Acute respiratory failure with hypoxia: (2) COVID-19: (3) New onset a-fib: (4) Leukopenia: (5) Thrombocytopenia: (6) Hypokalemia: (7) Stage 3b chronic kidney disease: PLAN: Acute hypoxic respiratory failure secondary to COVID-19 pneumonia -04/06/2021 -Patient remains on mechanical ventilation AC VC with and FiO2 of 100% and an SPO2 of 90-99% PEEP remains at 14 -Continue baricitinib dose 6 of 14 -Continue Decadron dose 6 of 10 -Patient has completed remdesivir -Lasix as needed--> hold Lasix dosing today with increased serum creatinine -Respiratory viral panel is negative -Sputum culture is negative -Duo nebs -Patient is on Eliquis 5 mg p.o. twice daily -Will need isolation until 04/12/2021 as symptoms started approximately 03/23/2021 -Recommend vaccine once out of isolation -Appreciate pulmonary and infectious disease input New onset A. fib/flutter -Patient is currently in a flutter with variable block -We will obtain echocardiogram once patient is out of isolation as there is no change that will be made at this time given acute findings on echo -Rate is controlled -Patient is on Eliquis 5 mg p.o. twice daily Suspected CKD stage IIIb -We have no available serum creatinine measurements prior to admission -Serum creatinine seems to fluctuate but is overall relatively stable -Continue to monitor DM-2 uncontrolled -Hemoglobin A1c was 9.2 on admission -Blood sugars are overall better -Patient is only on glimepiride 4 mg p.o. twice daily at baseline -I would recommend at least starting Metformin upon discharge if patient tolerates it -Continue Lantus 55 units twice daily and Humalog 10 units every 6 hours as blood sugars are overall better and will reevaluate tomorrow 04/09/2021 -Continue SSI -Accu-Cheks as ordered -Goal blood sugar given critical illness 140-180 Hypertension -Continue carvedilol 25 mg p.o. twice daily -Continue losartan hydrochlorothiazide daily DVT prophylaxis -Continue Eliquis 5 mg p.o. twice daily CODE STATUS -Full code Charges/Coding Visit Charges Inpatient E&M: 38422 Subs Hosp L2
[2021-04-08] MEDS: Vital AF 1.2 Cal Liquid 1,000 ML 60 ML GT (16:55)
--- NOTE | 2021-04-08 17:22 | RAD_ITS ---
STUDY: X-RAY CHEST REASON FOR EXAM: Female, 61 years old. Line placement TECHNIQUE: AP COMPARISON: 04/08/2021 FINDINGS: Endotracheal (terminates 1.7 cm above the anny) and esophagogastric tube stable. Right arm PICC is retracted with tip in the right subclavian vein. EKG leads project over the chest. Stable multilobar airspace disease. No pneumothorax. Normal size heart. Normal mediastinum and naet. Normal visualized pulmonary arteries. Normal visualized aortic arch and descending thoracic aorta. No acute bony process. There is no demonstrated abnormality of the visualized soft tissue structures of the upper abdomen. RAD/Chest 1 View (Portable) IMPRESSION: 1. Stable multilobar airspace disease/pneumonia. 2. Right arm PICC is retracted with tip in the right subclavian vein Electronically Signed: Deven Dugan MD ([place]) at 18:53 EST , Service support ,
[2021-04-08 17:25] LABS: Bedside Glucose 248 mg/dL (70-110)
--- NOTE | 2021-04-08 22:20 | RAD_ITS ---
STUDY: X-RAY CHEST REASON FOR EXAM: Female, 61 years old. PICC LINE PLACEMENT TECHNIQUE: Single AP portable view of the chest. COMPARISON: 04/08/2021, 5:29 AM FINDINGS: The right-sided PICC line is tip is now in the superior vena cava. Endotracheal tube and nasogastric tube in stable position. 2 bilateral infiltrates unchanged. There is no demonstrated pleural abnormality. Borderline cardiac silhouette. Normal mediastinum and nate. Normal visualized pulmonary arteries. Normal visualized aortic arch and descending thoracic aorta. Stable osseous structures. There is no demonstrated abnormality of the visualized soft tissue structures of the upper abdomen. RAD/Chest 1 View (Portable) IMPRESSION: Right-sided PICC line with its tip in the superior vena cava. Otherwise no significant change. Electronically Signed: Rosalio Hardwick, at 11:43 EST Tel , Service support ,
[2021-04-08 23:35] LABS: Bedside Glucose 139 mg/dL (70-110)
[2021-04-09] VITALS (50 sets, daily range): BP systolic 82–106; BP diastolic 42–77; PULSE 86–140; RESP 14–21; TEMP 36.6–37.2; O2SAT 87–94
[2021-04-09] MEDS: Propofol 10MG/Ml 1,000 MG/100 ML Bottle 24.5 MG CONT INF (02:00)
[2021-04-09] MEDS: guaiFENesin 10 ML UDC (200MG/10ML) GT ×4 (04:28→20:31)
[2021-04-09 05:42] LABS: Absolute Lymphocyte Count 0.59 X10^3/uL (0.83-4.51); Absolute Neutrophil Count 3.7 X10^3/uL (2.0-7.7); Hematocrit 38.3 % (37-47); Hemoglobin 12.1 g/dL (12.0-15.0); Lymphocyte # 0.59 X10^3/ul (0.83-4.51); Lymphocyte % 12.4 % (19-41); Mean Corp Hgb Conc 31.6 g/dL (32-36); Mean Corpuscular Hgb 28.9 pg (27.0-32.0); Mean Corpuscular Volume 91.6 fL (81-99); Mean Platelet Vol. 10.5 fl (6.2-12.0); Monocyte# 0.39 X10^3/uL; Monocyte% 8.2 % (0-10); NRBC Flagged by Analyzer 0 % (0-5); Neutrophil # 3.72 X10^3/uL (2.7-7.7); Neutrophil % 77.9 % (47-70); POSITIVE DIFFERENTIAL YES; Platelet Count 112 K/mm3 (150-450); RBC Distribution Width CV 13.7 % (11.6-14.6); RBC Distribution Width SD 46.1 fl (35.1-43.9); Red Blood Count 4.18 M/mm3 (4.2-5.4); White Blood Count 4.8 K/mm3 (4.4-11.0)
[2021-04-09 05:44] LABS: Differential Indicated SCAN CRITERIA MET
[2021-04-09 06:03] LABS: Differential Comment SCANNED
[2021-04-09 06:04] LABS: AST(SGOT) 53 U/L (15-37); Alanine Aminotransfer ALT/SGPT 25 U/L (13-56); Albumin, Serum 1.6 g/dL (3.2-5.0); Alkaline Phosphatase 50 U/L (45-117); Anion Gap 12 (5-15); BUN 103 mg/dL (7-18); BUN/Creat Ratio 32.1 RATIO (10-20); Bilirubin, Direct 0.35 mg/dL (0.00-0.30); Calcium,Total 7.5 mg/dL (8.5-10.1); Chloride 110 mmol/L (98-107); Creatinine, Serum 3.21 mg/dL (0.55-1.02); EST Glomerular Filtration Rate 16 mL/min (>60); Est Glom Filt Rate - Afr Amer 19 mL/min (>60); Estimated Creatinine Clearance 15.42 ml/min; Globulin 4.1 g/dL (2.2-4.2); Glucose 183 mg/dL (74-106); Potassium 3.7 mmol/L (3.5-5.1); Protein, Total 5.7 g/dL (6.4-8.2); Sodium Level 143 mmol/L (136-145)
[2021-04-09] MEDS: Insulin Lispro 100 UNIT/ML INSULN.PEN 10 UNIT SC (06:41)
[2021-04-09] MEDS: Insulin Lispro 100 UNIT/ML INSULN.PEN SC ×3 (06:41→16:55)
[2021-04-09] MEDS: Propofol 10MG/Ml 1,000 MG/100 ML Bottle 20.4 MG CONT INF ×4 (06:44→18:14)
--- NOTE | 2021-04-09 07:03 | US_ITS ---
STUDY: RENAL ULTRASOUND - COMPLETE REASON FOR EXAM: Female, 61 years old. Chronic kidney disease, positive Covid 19 TECHNIQUE: Ultrasound evaluation of the kidneys was performed with real-time and static francis-scale imaging. COMPARISON: None. FINDINGS: RIGHT KIDNEY: Normal location of the right kidney, which is normal in size. The right kidney measures 12.7 x 5.6 x 5.9 cm. There is a normal cortex of the right kidney. The renal cortex measures 2 cm. There is no right renal mass or cyst. There are no right renal calculi. There is no right hydronephrosis. LEFT KIDNEY: Normal location of the left kidney, which is normal in size. The left kidney measures 12.5 x 6 x 5.5 cm. There is a normal cortex of the left kidney. The renal cortex measures 1.5 cm. There is no left renal mass or cyst. There are no left renal calculi. There is no left hydronephrosis. BLADDER: There is a Whipple catheter in the bladder. US/Kidney and Bladder IMPRESSION: No evidence of hydronephrosis. Electronically Signed: Rosalio Hardwick, at 13:14 EST Tel , Service support ,
[2021-04-09 07:20] LABS: Bedside Glucose 164 mg/dL (70-110)
--- NOTE | 2021-04-09 07:24 | PCM.PN.INT ---
Assessment & Plan Assessment/Plan (1) Acute respiratory failure with hypoxia: (2) COVID-19: (3) New onset a-fib: PLAN: RECOMMENDATIONS: 1. Discontinue baricitinib. Continue Decadron (04/12/2021). 2. Continue empiric antimicrobials to complete 7-day treatment course (04/11/2021). 3. Continue scheduled bronchodilators. 4. Continue to wean FiO2 and PEEP as tolerated to maintain saturations at or above 90%. 5. Continue current sedation regimen. 6. Continue tube feeds as tolerated. 7. Continue Eliquis and appropriate GI prophylaxis. 8. Consider nephrology consult IMPRESSIONS: 1. Acute hypoxic respiratory failure secondary to ARDS secondary to COVID-19 The patient was initially admitted to the hospital April 02 and experienced worsening hypoxemia, culminating in ICU transfer and subsequent intubation on April 05. She will be continued on assist control mode mechanical ventilation. FiO2 and PEEP will be weaned to maintain saturations at or above 90%. The patient has completed a treatment course of remdesivir and will remain on baricitinib and Decadron as ordered. Given clinical decompensation, recommend completing a 7-day treatment course of antimicrobials. Continue tube feeds as tolerated along with Eliquis and appropriate GI prophylaxis. Endotracheal tube is slightly deep and this may be leading to difficulty with change in position. This will be withdrawn 2 cm. Continue with mucolytic and aggressive pulmonary toileting. 2. Acute kidney injury Likely prerenal/ATN in the setting of #1. Significant worsening over the last 24 hours. BUN is elevated, but there are no acute indications for renal replacement therapy. Whipple will be flushed. Baricitinib has been discontinued. Using creatinine, patient's GFR is essentially 0 3. Hypertension/morbid obesity/unvaccinated status/no intubation Complicates care, management, recovery and prognosis. Okay to continue with baseline medications at this time. High clinical suspicion for an element of obstructive sleep apnea. This will have to be addressed as an outpatient, but patient may benefit from extubation to BiPAP. TIME: 32 minutes of critical care time, independent of procedures, was spent addressing the patient's acute hypoxemic respiratory failure secondary to COVID-19 pneumonia, acute kidney injury, review of all data and collaboration with the care team. Subjective Subjective Patient did okay overnight. Nursing had reported significant desaturation associated with change in position yesterday requiring an increase in PEEP to 16. FiO2 has been weaned to 85%. Decreased urine output was noted overnight. Objective Data Objective Data Vital Signs: Vital Signs Temp Pulse Resp BP Pulse Ox 36.7 C 100 18 91/51 L 93 04/09/21 04:00 04/09/21 07:00 04/09/21 07:00 04/09/21 07:00 04/09/21 07:00 Oxygen Flow Rate (L/min) 100 Oxygen Delivery Method Mechanical Ventilator Weight: 136.4 kg Body Mass Index (BMI) 52.9 Intake & Output: Intake and Output for Last 24 Hours 04/07/21 04/08/21 04/09/21 23:59 23:59 23:59 Intake Total 5393.42 / 5472.10 2835.87 / 3999.67 1798.74 / 1798.74 Output Total 2625 / 2625 475 / 615 200 / 200 Balance 2768.42 / 2847.10 2360.87 / 3384.67 1598.74 / 1598.74 Lab / Micro Data Result Diagrams: 04/09/21 04:35 04/09/21 04:35 Labs: Laboratory Results - last 24 hr 04/08/21 11:23: POC Glucose 134 H 04/08/21 16:55: POC Glucose 248 H 04/08/21 23:26: POC Glucose 139 H 04/09/21 04:35: WBC 4.8, RBC 4.18 L, Hgb 12.1, Hct 38.3, MCV 91.6, MCH 28.9, MCHC 31.6 L, RDW Std Deviation 46.1 H, RDW Coeff of Yoana 13.7, Plt Count 112 L, MPV 10.5, Immature Gran % (Auto) 1.500 H, Neut % (Auto) 77.9 H, Lymph % (Auto) 12.4 L, [place] % (Auto) 8.2, Eos % (Auto) 0.0, Baso % (Auto) 0.0, Absolute Neuts (auto) 3.7, Absolute Lymphs (auto) 0.59 L, Nucleated RBC % 0, Differential Comment SCANNED 04/09/21 04:35: Sodium 143, Potassium 3.7, Chloride 110 H, Carbon Dioxide 21.0, Anion Gap 12, BUN 103 H*, Creatinine 3.21 H, Estim Creat Clear Calc 15.42, Est GFR (MDRD) Af Amer 19 L, Est GFR (MDRD) Non-Af 16 L, BUN/Creatinine Ratio 32.1 H, Glucose 183 H, Calcium 7.5 L, Total Bilirubin 0.60, Direct Bilirubin 0.35 H, AST 53 H, ALT 25, Alkaline Phosphatase 50, Total Protein 5.7 L, Albumin 1.6 L, Globulin 4.1 04/09/21 06:34: POC Glucose 164 H Micro: Microbiology 04/05/21 13:50 Sputum, Induced/Lukens Gram Stain - Final 04/05/21 13:50 Sputum, Induced/Lukens Respiratory Culture - Final 04/04/21 04:30 Urine Catheter - Whipple Legionella Antigen - Final 04/04/21 04:30 Urine Catheter - Whipple Streptococcus pneumoniae Antigen (M - Final 04/02/21 23:45 Mucosa - Nasopharyngeal Respiratory Panel (PCR) - Final 04/02/21 11:44 Nasal Secretion SARS-CoV-2 Antigen (Rapid) - Final SARS-CoV-2 (COVID 19) Radiography Diagnostic Testing: Radiology Impression Chest X-Ray 04/08/21 12:05 IMPRESSION: Stable multilobar airspace disease/pneumonia. Electronically Signed: Deven Dugan MD ([place]) at 12:35 EST , Service support , Chest X-Ray 04/08/21 17:22 IMPRESSION: 1. Stable multilobar airspace disease/pneumonia. 2. Right arm PICC is retracted with tip in the right subclavian vein Electronically Signed: Deven Dugan MD ([place]) at 18:53 EST , Service support , Personal review of chest x-ray shows endotracheal tube is 1 cm from the anny Physical Exam Const General Appearance: intubated and patient mechanically ventilated Nutritional Appearance: morbidly obese HEENT normocephalic and head/scalp atraumatic Mouth: endotracheal tube in place and OG tube in place Eyes PERRL and conjunctivae normal Neck supple General: trachea midline Chest inspection of chest normal Chest: symmetrical chest wall rise; Negative for crepitus Resp Auscultation: diminished lung sounds Cardio regular rate and regular rhythm GI normal to inspection, nondistended, normoactive bowel sounds Bladder / Kidney Exam: catheter in place urethral (Clear yellow without sediment) Extremity no clubbing, cyanosis or edema Skin no rashes or lesions noted Neuro Sensorium / Orientation: sedated on vent Charges/Coding Procedures Hospitalists Procedures: [id number] Critial Care 1st Hr
[2021-04-09] MEDS: Ipratropium/Albuterol Sulfate 3 ML AMPUL.NEB INHALATION ×3 (07:37→19:40)
[2021-04-09] MEDS: APIXABAN 5 MG TABLET GT ×2 (08:22→20:31)
[2021-04-09] MEDS: dexAMETHasone 4 MG/ML Vial 6 MG IV (08:22)
[2021-04-09] MEDS: Polyethylene Glycol 3350 17 GM PACKET PO (08:23)
[2021-04-09] MEDS: Cholecalciferol (VIT D3) 25 MCG TABLET (1,000 UNITS) GT (08:23)
[2021-04-09] MEDS: Nystatin Powder 15gm Bottle 1 APPLIC TOPICAL ×2 (08:25→20:58)
[2021-04-09 09:02] LABS: Urea Nitrogen, Urine 271 mg/dL (NO RANGE EST.); Urine Sodium 42 mmol/L (Not Establ.)
[2021-04-09] MEDS: Chlorhexidine 15 ML PO ×2 (09:29→20:57)
[2021-04-09 09:36] LABS: Bedside Glucose 124 mg/dL (70-110)
--- NOTE | 2021-04-09 11:39 | PCM.PN.HOSP ---
Subjective Subjective Patient remains intubated and sedated. She is maintaining oxygen saturations of 90 to 93% on 85% FiO2 and PEEP of 14. She has developed some acute kidney injury and her creatinine is now up to 3.21 which is requiring us to discontinue her baricitinib and her remdesivir. Her Decadron will be continued. Urine output has been poor in the last 24 hours. Objective Data Objective Data Vital Signs: Vital Signs Temp Pulse Resp BP Pulse Ox 98.9 F 99 20 H 96/46 L 90 04/09/21 08:00 04/09/21 10:00 04/09/21 10:00 04/09/21 10:00 04/09/21 10:00 Oxygen Flow Rate (L/min) 100 Oxygen Delivery Method Mechanical Ventilator Weight: 136.4 kg Body Mass Index (BMI) 52.9 Intake & Output: Intake and Output for Last 24 Hours 04/07/21 04/08/21 04/09/21 23:59 23:59 23:59 Intake Total 5393.42 / 5472.10 2835.87 / 3999.67 2669.32 / 2669.32 Output Total 2625 / 2625 475 / 615 200 / 200 Balance 2768.42 / 2847.10 2360.87 / 3384.67 2469.32 / 2469.32 Lab / Micro Data Result Diagrams: 04/09/21 04:35 04/09/21 04:35 Labs: Laboratory Results - last 24 hr 04/08/21 11:23: POC Glucose 134 H 04/08/21 16:55: POC Glucose 248 H 04/08/21 23:26: POC Glucose 139 H 04/09/21 04:35: WBC 4.8, RBC 4.18 L, Hgb 12.1, Hct 38.3, MCV 91.6, MCH 28.9, MCHC 31.6 L, RDW Std Deviation 46.1 H, RDW Coeff of Yoana 13.7, Plt Count 112 L, MPV 10.5, Immature Gran % (Auto) 1.500 H, Neut % (Auto) 77.9 H, Lymph % (Auto) 12.4 L, [place] % (Auto) 8.2, Eos % (Auto) 0.0, Baso % (Auto) 0.0, Absolute Neuts (auto) 3.7, Absolute Lymphs (auto) 0.59 L, Nucleated RBC % 0, Differential Comment SCANNED 04/09/21 04:35: Sodium 143, Potassium 3.7, Chloride 110 H, Carbon Dioxide 21.0, Anion Gap 12, BUN 103 H*, Creatinine 3.21 H, Estim Creat Clear Calc 15.42, Est GFR (MDRD) Af Amer 19 L, Est GFR (MDRD) Non-Af 16 L, BUN/Creatinine Ratio 32.1 H, Glucose 183 H, Calcium 7.5 L, Total Bilirubin 0.60, Direct Bilirubin 0.35 H, AST 53 H, ALT 25, Alkaline Phosphatase 50, Total Protein 5.7 L, Albumin 1.6 L, Globulin 4.1 04/09/21 06:34: POC Glucose 164 H 04/09/21 08:10: Ur Random Sodium 42, Urine Creatinine 102.00, Urine Urea Nitrogen 271 04/09/21 09:28: POC Glucose 124 H Micro: Microbiology 04/05/21 13:50 Sputum, Induced/Lukens Gram Stain - Final 04/05/21 13:50 Sputum, Induced/Lukens Respiratory Culture - Final 04/04/21 04:30 Urine Catheter - Whipple Legionella Antigen - Final 04/04/21 04:30 Urine Catheter - Whipple Streptococcus pneumoniae Antigen (M - Final 04/02/21 23:45 Mucosa - Nasopharyngeal Respiratory Panel (PCR) - Final 04/02/21 11:44 Nasal Secretion SARS-CoV-2 Antigen (Rapid) - Final SARS-CoV-2 (COVID 19) Radiography Diagnostic Testing: Radiology Impression Chest X-Ray 04/08/21 12:05 IMPRESSION: Stable multilobar airspace disease/pneumonia. Electronically Signed: Deven Dugan MD ([place]) at 12:35 EST , Service support , Chest X-Ray 04/08/21 17:22 IMPRESSION: 1. Stable multilobar airspace disease/pneumonia. 2. Right arm PICC is retracted with tip in the right subclavian vein Electronically Signed: Deven Dugan MD ([place]) at 18:53 EST , Service support , Physical Exam Const alert, oriented x3, no apparent distress and healthy appearing Constitutional Narrative: Morbidly obese white female lying in bed intubated and sedated General Appearance: cooperative, well kempt and well developed Orientation / Consciousness: awake, oriented to person, oriented to place and oriented to time Exam Limitations: no limitations Nutritional Appearance: morbidly obese HEENT normocephalic, head/scalp atraumatic and hearing grossly normal bilaterally HEENT Narrative: ET tube in place Head and Scalp: normocephalic Neck nuchal rigidity and thyroid normal General: trachea midline Resp no retractions, no use of accessory muscles and clear to auscultation bilaterally Resp Narrative: Secondary to body habitus but overall diminished without any adventitious sounds Auscultation: Negative for crackles, rales, rhonchi or wheezes Cardio regular rate, S1 normal heart sound, S2 normal heart sound, no murmurs, no rub, no gallops, no clicks and no JVD Cardio Narrative: Heart rate and rhythm is irregular GI normal to inspection, nondistended, normoactive bowel sounds, soft to palpation, non-tender and non-distended GI Narrative: Patient is morbidly obese, large ventral hernia noted Palpation: hernia ventral (Large) Extremity no clubbing, cyanosis or edema Peripheral Pulses: Yes pulses 2+ throughout Skin no rashes or lesions noted, no wounds, skin turgor normal, no jaundice, no petechiae and no mottling Skin Narrative: Skin is pale General Skin Exam: no breakdown Neuro Neuro Narrative: Patient is intubated and sedated Psych thought process normal Assessment & Plan Assessment/Plan (1) Acute respiratory failure with hypoxia: (2) COVID-19: (3) New onset a-fib: (4) Leukopenia: (5) Thrombocytopenia: (6) Hypokalemia: (7) Stage 3b chronic kidney disease: PLAN: Acute hypoxic respiratory failure secondary to COVID-19 pneumonia -04/06/2021 -Patient remains on mechanical ventilation AC VC with and FiO2 of 185% and an SPO2 of 90-93% PEEP remains at 14 -Discontinue baricitinib after dose 6 of 14 secondary to the development of PLACIDO -Continue Decadron dose 6 of 10 -Patient has completed remdesivir -Hold diuresis with worsening renal function -Respiratory viral panel is negative -Sputum culture is negative -Duo nebs -Patient is on Eliquis 5 mg p.o. twice daily -Will need isolation until 04/12/2021 as symptoms started approximately 03/23/2021 -Recommend vaccine once out of isolation -Appreciate pulmonary and infectious disease input New onset A. fib/flutter -Patient is currently in a flutter with variable block -We will obtain echocardiogram once patient is out of isolation as there is no change that will be made at this time given acute findings on echo -Rate is controlled -Patient is on Eliquis 5 mg p.o. twice daily PLACIDO on CKD stage IIIb -We have no available serum creatinine measurements prior to admission -Serum creatinine has increased dramatically in the last 24 hours -Patient is only oliguric -Whipple is in place -We will check urine studies for Fe urea--> utilize IV fluids if needed -Patient may have some relative hypotension and will start some low-dose Levophed to keep map around 70 to increase renal perfusion and see if this helps with renal function -Check retroperitoneal ultrasound -If no improvement in renal function next 24 hours we will consult nephrology DM-2 uncontrolled -Hemoglobin A1c was 9.2 on admission -Blood sugars are overall better -Patient is only on glimepiride 4 mg p.o. twice daily at baseline -I would recommend at least starting Metformin upon discharge if patient tolerates it -Decrease Lantus to 35 units twice daily with worsening renal function and Humalog to 15 units every 6 hours -Monitor blood sugars closely as worsening renal function will decrease insulin clearance -Continue SSI -Accu-Cheks as ordered -Goal blood sugar given critical illness 140-180 Hypertension -Hold antihypertensives DVT prophylaxis -Continue Eliquis 5 mg p.o. twice daily CODE STATUS -Full code Charges/Coding Visit Charges Inpatient E&M: 71474 Subs Hosp L2
[2021-04-09] MEDS: Vital AF 1.2 Cal Liquid 1,000 ML 60 ML GT (11:40)
[2021-04-09 11:46] LABS: Bedside Glucose 121 mg/dL (70-110)
[2021-04-09 17:01] LABS: Bedside Glucose 162 mg/dL (70-110)
[2021-04-09] MEDS: 0.9% Normal Saline 1,000 ML 999 ML IV (20:10)
[2021-04-09] MEDS: 0.9% Saline Lock 10 ML Syringe IV ×2 (20:10→20:15)
[2021-04-09 21:10] LABS: Allen Test Positive; Base Excess -11 mmol/L (-2 to +2); Bicarbonate 17.4 mmol/L (22-26); Blood Gas Specimen Type ART; FI02 95; Mode AC; O2 Delivery Device Adult Vent; PEEP 16; PO2 58 mmHG (75-100); RR 14; SITE L Radial; SO2 83 % (95-99); Total Carbon Dioxide 19 mmol/L; Vt 450; pCO2 44.5 mmHg (35-45)
[2021-04-09] MEDS: Propofol 10MG/Ml 1,000 MG/100 ML Bottle 12.2 MG CONT INF (22:39)
[2021-04-09 23:55] LABS: Bedside Glucose 160 mg/dL (70-110)
[2021-04-10] VITALS (11 sets, daily range): BP systolic 49–82; BP diastolic 34–52; PULSE 116–137; RESP 14–18; TEMP 37.1–37.2; O2SAT 86–90
[2021-04-10] MEDS: Insulin Lispro 100 UNIT/ML INSULN.PEN SC ×2 (00:21)
--- NOTE | 2021-04-10 00:37 | NURSING ---
transferred to CT with [facility] and this nurse at 0000hrs and then to ICU. arrived ICU 0025hrs
--- NOTE | 2021-04-10 01:55 | RAD_ITS ---
STUDY: X-RAY CHEST REASON FOR EXAM: Female, 61 years old. Respiratory Distress TECHNIQUE: 1 view COMPARISON: 04/08/2021 . FINDINGS: Please see the impression. RAD/Chest 1 View (Portable) IMPRESSION: Interval retraction of the ET tube, currently terminating 4.0 cm above the anny. Right-sided PICC line and enteric tubes in stable positions. Slight interval worsening in bilateral lower lung airspace opacities and pleural effusions. No pneumothorax. Trachea midline. Persistent mild cardiomegaly Electronically Signed: Yemi Brizuela MD at 4:08 EST Tel , Service support ,
--- NOTE | 2021-04-10 02:29 | NURSING ---
This nurse spoke to daughter/POA Seema Salas, who is present at bedside, about pt's worsening condition and every intervention that has been done. Seema would like pt's code status changed to DNR-CCA with intubation. Cortext sent to Dr. Gastelum.
--- NOTE | 2021-04-10 02:30 | PCM.PN.BLA ---
Progress Note Nurse reports discussion with daughter/POA who wants patient to be a DNR CCA with intubation. Will place order.
--- NOTE | 2021-04-10 02:36 | NURSING ---
Attempted to call daughter Bettie, no answer. Voicemail left with callback number.
[2021-04-10 04:31] LABS: Bedside Glucose 163 mg/dL (70-110)
[2021-04-10 04:50] LABS: Absolute Lymphocyte Count 1.05 X10^3/uL (0.83-4.51); Absolute Neutrophil Count 8.1 X10^3/uL (2.0-7.7); Basophil# 0.01 X10^3/uL; Basophil% 0.1 % (0-1); Hematocrit 36.2 % (37-47); Hemoglobin 11.3 g/dL (12.0-15.0); Lymphocyte # 1.05 X10^3/ul (0.83-4.51); Lymphocyte % 10.3 % (19-41); Mean Corp Hgb Conc 31.2 g/dL (32-36); Mean Corpuscular Hgb 28.8 pg (27.0-32.0); Mean Corpuscular Volume 92.1 fL (81-99); Mean Platelet Vol. 11.5 fl (6.2-12.0); Monocyte# 0.86 X10^3/uL; Monocyte% 8.4 % (0-10); NRBC Flagged by Analyzer 0 % (0-5); Neutrophil # 8.13 X10^3/uL (2.7-7.7); Neutrophil % 79.3 % (47-70); Platelet Count 125 K/mm3 (150-450); RBC Distribution Width CV 14.2 % (11.6-14.6); RBC Distribution Width SD 48.3 fl (35.1-43.9); Red Blood Count 3.93 M/mm3 (4.2-5.4); White Blood Count 10.2 K/mm3 (4.4-11.0)
[2021-04-10 05:06] LABS: Base Excess -14 mmol/L (-2 to +2); Bicarbonate 16.6 mmol/L (22-26); Blood Gas Specimen Type ART; FI02 100; Mode AC; O2 Delivery Device Adult Vent; PEEP 18; PO2 56 mmHG (75-100); RR 14; SITE L Radial; SO2 73 % (95-99); Total Carbon Dioxide 18 mmol/L; Vt 450; pCO2 59.5 mmHg (35-45); pH 7.05 (7.35-7.45)
[2021-04-10 05:24] LABS: Anion Gap 14 (5-15); BUN 132 mg/dL (7-18); BUN/Creat Ratio 24.5 RATIO (10-20); Calcium,Total 6.4 mg/dL (8.5-10.1); Chloride 112 mmol/L (98-107); Creatinine, Serum 5.38 mg/dL (0.55-1.02); EST Glomerular Filtration Rate 9 mL/min (>60); Est Glom Filt Rate - Afr Amer 10 mL/min (>60); Glucose 139 mg/dL (74-106); Potassium 3.9 mmol/L (3.5-5.1); Sodium Level 143 mmol/L (136-145)
--- NOTE | 2021-04-10 06:26 | PN.CC_ITS ---
Assessment & Plan Assessment/Plan (1) Acute respiratory failure with hypoxia: (2) COVID-19: (3) New onset a-fib: PLAN: RECOMMENDATIONS: 1. Discontinue baricitinib. Continue Decadron (04/12/2021). 2. Continue empiric antimicrobials to complete 7-day treatment course (04/11/2021). 3. Continue scheduled bronchodilators. 4. Continue mechanical ventilation for now 5. No escalation of care at this point IMPRESSIONS: 1. Acute hypoxic respiratory failure secondary to ARDS secondary to COVID-19 The patient was initially admitted to the hospital April 02 and experienced worsening hypoxemia, culminating in ICU transfer and subsequent intubation on April 05. She will be continued on assist control mode mechanical ventilation. FiO2 and PEEP will be weaned to maintain saturations at or above 90%. The patient has completed a treatment course of remdesivir and will remain on baricitinib and Decadron as ordered. Given clinical decompensation, recommend completing a 7-day treatment course of antimicrobials. Patient with marginal saturations, progressive metabolic acidosis and CO2 retention. Family does not want a withdrawal, but does not want to escalate care either. Family at the bedside 2. Acute kidney injury/failure Likely prerenal/ATN in the setting of #1. Significant worsening over the last 24 hours. BUN is elevated, but there are no acute indications for renal replacement therapy. Whipple will be flushed. Baricitinib was discontinued yesterday. Using creatinine, patient's GFR is essentially 0 3. Hypertension/morbid obesity/unvaccinated status/no intubation Complicates care, management, recovery and prognosis. Okay to continue with baseline medications at this time. Anticipate patient passing with ventilator in place and family at the bedside. 4. Acute blood loss anemia secondary to upper GI bleed Patient with the development of coffee-ground from the OG. Clinical suspicion for gastritis. Given severity of symptoms, no work-up will be initiated. Eliquis has been discontinued. TIME: 34 minutes of critical care time, independent of procedures, was spent addressing the patient's acute hypoxemic respiratory failure secondary to COVID- 19 pneumonia, acute kidney injury, review of all data and collaboration with the care team. Subjective Subjective Patient with progressive decline over the last 24 hours. Patient had pressure started yesterday afternoon, but overnight progressed to 2 pressors. Patient also developed coffee-ground from the OG. Tube feeds were stopped. Patient noted to become worse hypoxic with time. Patient was increased to a PEEP of 18 and was subsequently paralyzed. Family was called to the bedside. Discussed at length with the family this morning. They are not willing to withdraw care, but do not want to add to current regimen. They are at the bedside and all questions were answered. Objective Data Objective Data Vital Signs: Vital Signs Temp Pulse Resp BP Pulse Ox 37.2 C 121 H 14 49/34 L 90 04/10/21 04:00 04/10/21 06:00 04/10/21 06:00 04/10/21 06:00 04/10/21 06:00 Oxygen Flow Rate (L/min) 100 Oxygen Delivery Method Mechanical Ventilator Weight: 136.4 kg Body Mass Index (BMI) 52.9 Intake & Output: Intake and Output for Last 24 Hours 04/08/21 04/09/21 04/10/21 23:59 23:59 23:59 Intake Total 2835.87 / 3999.67 6544.03 / 6941.44 1117.52 / 1117.52 Output Total 475 / 615 375 / 425 450 / 450 Balance 2360.87 / 3384.67 6169.03 / 6516.44 667.52 / 667.52 Lab / Micro Data Result Diagrams: 04/10/21 04:15 04/10/21 04:15 Labs: Laboratory Results - last 24 hr 04/09/21 06:34: POC Glucose 164 H 04/09/21 08:10: Ur Random Sodium 42, Urine Creatinine 102.00, Urine Urea Nitrogen 271 04/09/21 09:28: POC Glucose 124 H 04/09/21 11:43: POC Glucose 121 H 04/09/21 16:54: POC Glucose 162 H 04/09/21 21:22: POC Glucose 160 H 04/10/21 00:19: POC Glucose 163 H 04/10/21 04:15: WBC 10.2, RBC 3.93 L, Hgb 11.3 L, Hct 36.2 L, MCV 92.1, MCH 28.8, MCHC 31.2 L, RDW Std Deviation 48.3 H, RDW Coeff of Yoana 14.2, Plt Count 125 L, MPV 11.5, Immature Gran % (Auto) 1.900 H, Neut % (Auto) 79.3 H, Lymph % (Auto) 10.3 L, [place] % (Auto) 8.4, Eos % (Auto) 0.0, Baso % (Auto) 0.1, Absolute Neuts (auto) 8.1 H, Absolute Lymphs (auto) 1.05, Nucleated RBC % 0 04/10/21 04:15: Sodium 143, Potassium 3.9, Chloride 112 H, Carbon Dioxide 17.0 L , Anion Gap 14, BUN 132 H*, Creatinine 5.38 H, Estim Creat Clear Calc 9.20, Est GFR (MDRD) Af Amer 10 L, Est GFR (MDRD) Non-Af 9 L, BUN/Creatinine Ratio 24.5 H, Glucose 139 H, Calcium 6.4 L* Micro: Microbiology 04/05/21 13:50 Sputum, Induced/Lukens Gram Stain - Final 04/05/21 13:50 Sputum, Induced/Lukens Respiratory Culture - Final 04/04/21 04:30 Urine Catheter - Whipple Legionella Antigen - Final 04/04/21 04:30 Urine Catheter - Whipple Streptococcus pneumoniae Antigen (M - Final 04/02/21 23:45 Mucosa - Nasopharyngeal Respiratory Panel (PCR) - Final 04/02/21 11:44 Nasal Secretion SARS-CoV-2 Antigen (Rapid) - Final SARS-CoV-2 (COVID 19) ABG Data ABG results: ABG 04/09/21 04/10/21 21:06 04:57 Specimen Type ART ART Sample Site L Radial L Radial pH 7.20 L 7.05 L* Bicarbonate Actual 17.4 L 16.6 L Total CO2 19 18 Base Excess -11 L -14 L O2 Saturation 83 L 73 L O2 % 95 100 ABG pCO2 44.5 59.5 H ABG pO2 58 L 56 L Manoj Test Positive N/A Respiration Rate 14 14 O2 Delivery Device Adult Vent Adult Vent Vent Mode AC AC Tidal Volume 450 450 POC PEEP 16 18 Crit Call To/Read Back Yes Yes Blood Gas Notified Whom Dr. Apolinar Jiang Radiography Diagnostic Testing: Radiology Impression Chest X-Ray 04/08/21 22:20 IMPRESSION: Right-sided PICC line with its tip in the superior vena cava. Otherwise no significant change. Electronically Signed: Rosalio Hardwick, at 11:43 EST Tel , Service support , Renal Ultrasound 04/09/21 07:03 IMPRESSION: No evidence of hydronephrosis. Electronically Signed: Rsoalio Hardwick, at 13:14 EST Tel , Service support , Chest X-Ray 04/10/21 01:55 IMPRESSION: Interval retraction of the ET tube, currently terminating 4.0 cm above the anny. Right-sided PICC line and enteric tubes in stable positions. Slight interval worsening in bilateral lower lung airspace opacities and pleural effusions. No pneumothorax. Trachea midline. Persistent mild cardiomegaly Electronically Signed: Yemi Brizuela MD at 4:08 EST Tel , Service support , Physical Exam Const General Appearance: intubated and patient mechanically ventilated Nutritional Appearance: morbidly obese HEENT normocephalic and head/scalp atraumatic Mouth: endotracheal tube in place and OG tube in place Eyes PERRL and conjunctivae normal Neck supple General: trachea midline Chest inspection of chest normal Chest: symmetrical chest wall rise; Negative for crepitus Resp Auscultation: diminished lung sounds; Negative for rales, rhonchi or wheezes Cardio regular rate and regular rhythm GI normal to inspection, nondistended, normoactive bowel sounds Bladder / Kidney Exam: catheter in place urethral (Yellow with sediment) Extremity no clubbing, cyanosis or edema Skin no rashes or lesions noted Neuro Neuro Narrative: Currently paralyzed Sensorium / Orientation: sedated on vent Charges/Coding Procedures Hospitalists Procedures: [id number] Critial Care 1st Hr
[2021-04-10 10:01] LABS: Bedside Glucose 139 mg/dL (70-110)
--- NOTE | 2021-04-10 12:04 | PCM.DEATH ---
Preliminary Cause of Preliminary Cause of Preliminary Cause of : Acute hypoxic respiratory failure secondary to COVID-19 pneumonia Principle Diagnosis Problem List: Active and Suspected Problems (Updated 04/04/21 @ 16:[address] Tracy Ha DO) Stage 3b chronic kidney disease (Acute) Hypokalemia (Acute) Thrombocytopenia (Acute) Leukopenia (Acute) Acute respiratory failure with hypoxia (Acute) COVID-19 (Acute) Hypoxia (Acute) New onset a-fib (Acute) Hospital Course Mrs. Dominguez was a 61-year-old white female who presented to the emergency department [facility] on 04/02/2021 with a chief complaint of shortness of breath. At that time she also complained of body aches, nonproductive cough, and a fever. She reported that her symptoms started approximately 10 days prior to admission. She indicated at that time that she had not been vaccinated for Covid and she lives with her mother who had just been diagnosed with Covid. Her work-up in the emergency department included a CTA of her chest which showed no evidence of pulmonary emboli but there was bilateral diffuse pneumonia. On admission she required supplemental oxygen at 4 L nasal cannula to maintain pulse ox greater than 90%. On room air she was 87%. She was also found to be in atrial fibrillation/flutter at the time of admission and was given Cardizem to slow her rate. She had leukopenia and lymphopenia on admission. Her serum potassium was 2.9 at admission with a sodium of 131 and her serum creatinine was 1.5. Her initial troponin was slightly elevated at 95. She was initially admitted to the PCU for further monitoring given the fact she had new onset atrial fibrillation. She was placed on Eliquis for anticoagulation and was treated with remdesivir and Decadron. Cultures were obtained and found to be negative. She unfortunately decompensated throughout her hospitalization and required transfer to the ICU on 04/04/2021 and she was requiring BiPAP at 100%. She initially made her CODE STATUS DNR CCA with no intubation but revoked that status and was transferred to the ICU at that time. Infectious disease was consulted for the initiation of baricitinib. This was added on 04/04/2021. She unfortunately decompensated to the point of requiring mechanical ventilation and was intubated on 04/05/2021. She required 85 to 100% FiO2 with a PEEP of 12-14 while she was mechanically ventilated. On the a.m. of 04/09/2021 her labs were noted to have markedly worsening renal function with a serum creatinine at 3.21 when it had been 1.53 the day prior. At that time remdesivir and baricitinib had to be discontinued. She was able to be be maintained on Decadron at that time. A FeNa and Fe urea were calculated she was found to be prerenal and a 1 L fluid bolus was given and she was initiated on pressors. Unfortunately she further decompensated through the night and required maximal titration of Levophed with the addition of vasopressin. Her renal function worsened and she developed a marked combined respiratory and metabolic respiratory acidosis with a pH of 7.05. Family was called and the decision was made to not escalate any further care and the patient at 6:52 AM on 04/10/2021 with family at the bedside. Discharge diagnoses: Refractory septic shock secondary to COVID-19 Acute hypoxic and hypercapnic respiratory failure secondary to COVID-19 pneumonia PLACIDO on CKD stage IIIb New onset atrial fibrillation/flutter Acute mixed metabolic/respiratory acidosis DM-2 uncontrolled Hypertension
== END 2021-04-10 06:52 | DRG 870 ==
LOC: ED 15:48 → PCU 18:36 → ICU 04-05 10:44
PROVIDERS: Family Medicine; Internal Medicine Critical Care Medicine; Admitting Provider Internal Medicine; Emergency Provider Emergency Medicine; PCP Family Medicine; Visit Provider Internal Medicine
DX: A41.89 Other specified sepsis (principal); U07.1 COVID-19; J12.82 Pneumonia due to coronavirus disease 2019; J96.01 Acute respiratory failure with hypoxia; R65.21 Severe sepsis with septic shock; J96.02 Acute respiratory failure with hypercapnia; I48.92 Unspecified atrial flutter; Z68.43 Body mass index [BMI] 50.0-59.9, adult; E87.4 Mixed disorder of acid-base balance; N17.9 Acute kidney failure, unspecified; E87.6 Hypokalemia; E78.5 Hyperlipidemia, unspecified; I48.91 Unspecified atrial fibrillation; E11.65 Type 2 diabetes mellitus with hyperglycemia; E11.22 Type 2 diabetes mellitus with diabetic chronic kidney disease; I12.9 Hypertensive chronic kidney disease with stage 1 through stage 4 chronic kidney disease, or unspecified chronic kidney disease; N18.32 Chronic kidney disease, stage 3b; E66.01 Morbid (severe) obesity due to excess calories; Z28.3 Underimmunization status; Z87.891 Personal history of nicotine dependence; Z79.01 Long term (current) use of anticoagulants; D69.6 Thrombocytopenia, unspecified; Z66 Do not resuscitate; K76.0 Fatty (change of) liver, not elsewhere classified; K74.60 Unspecified cirrhosis of liver; Z79.84 Long term (current) use of oral hypoglycemic drugs; Z88.5 Allergy status to narcotic agent
CPT/HCPCS: 31500; 31720; 36415; 36569; 36600; 71045; 71275; 76770; 80048; 80053; 80076; 82550; 82570; 82728; 82803; 82962; 83036; 83615; 83735; 83880; 84145; 84300; 84478; 84484; 84540; 85025; 85379; 86140; 87070; 87205; 87426; 87449; 87633; 93005; 94002; 94003; 94640; 94660; 94667; 94668; 94762; 97803; 99251; 99285; J7030; J7040; J7050; Q9967; A4216; G0463; J1940; J3010; J3490